=== PATIENT | male | born 1985 | race Caucasian/White ===

== ENCOUNTER → 2017-01-04 | Outpatient (CLI) | payer OTHER ==
--- NOTE | 2017-01-04 11:23 | FL ---
EXAMINATION TYPE: FL UGI air DATE OF EXAM: 01/04/2017 11:09 AM COMPARISON: NONE HISTORY: Epigastric pain and acid reflux-like symptoms. Been on reflux medication for years with some improvement in symptoms. History of surgery for pyloric stenosis as infant. TECHNIQUE: A double contrast UGI study is performed. A total of 1.06 minutes of fluoroscopic time wa s utilized during procedure. FINDINGS: [employer] image of the abdomen shows no gross abnormality. Without image is slightly suboptima l as does not include entire epigastric region near lung bases. The esophagus shows normal motility and emptying into the stomach. No evidence of hiatal hernia or s tricture noted. The stomach shows normal distensibility and peristalsis. A moderate size fixed hiatal hernia is pres ent. There is moderate diffuse gastric fold prominence particularly in the fundus. No evidence of any intraluminal mass or reinier ulcer disease. Some episodes of gastroesophageal reflux from hiatal herni a into the distal esophagus identified during real-time scanning. The duodenal bulb, sweep, and proximal small bowel loops are unremarkable on delayed images. IMPRESSION: Moderate size fixed hiatal hernia with moderate diffuse gastritis. No reinier ulcer disease .
[2017-01-04 12:02] LABS: CH 23.7; CHCM 30.3; HCT 44.1 % (39.0-53.0); HDW 2.76; HGB 13.2 gm/dL (13.0-17.5); Hypochromasia Marked; MCH 23.6 pg (25.0-35.0); MCHC 30.1 g/dL (31.0-37.0); MCV 78.6 fL (80.0-100.0); Mean Platelet Volume 7.6; RDW 14.4 % (11.5-15.5); WBC 2.4 k/uL (3.8-10.6)
[2017-01-04 12:58] LABS: % Iron Saturation 5.5 % (20-50)
== END | disposition home or self-care (01) ==
LOC: RADFLWHC 10:16
PROVIDERS: ATTEND Internal Medicine
DX: K29.70 Gastritis, unspecified, without bleeding (principal); K44.9 Diaphragmatic hernia without obstruction or gangrene; K21.9 Gastro-esophageal reflux disease without esophagitis; D64.9 Anemia, unspecified
CPT/HCPCS: 74246; 82607; 82746; 83540; 83550; 85027

== ENCOUNTER 2017-03-08 08:58 | Day surgery (SDC) | payer OTHER ==
[2017-03-02 12:26] VITALS: BMI 21.4
[~2017-03-08 08:58] MED LIST: LACTATED RINGERS 1,000 ML IV SCH; LIDOCAINE 1% 20 ML VIAL (10MG/ML) FOR IV START INTRADERMA PRN
[2017-03-08 09:26] VITALS: RESP 16; TEMP 99
[2017-03-08] MEDS ORDERED: LIDOCAINE 1% INJ 10MG/ML (20 ML MDV) ONE (09:46)
[2017-03-08] MEDS ORDERED: PROPOFOL 10 MG/ML 20 ML VIAL IV ONE (09:46)
--- NOTE | 2017-03-08 09:54 | P.PCN ---
Date of Procedure: 03/08/17 Procedure(s) Performed: BRIEF HISTORY: Patient is a 32-year-old, pleasant, white male, scheduled for an upper endoscopy as a part of long-standing evaluation of gastroesophageal reflux disease almost 15 years duration. He is been Prilosec 20 mg daily for the last 1 year and doing well. Scheduled for an upper endoscopy to rule out complicated reflux disease.. PROCEDURE PERFORMED: Esophagogastroduodenoscopy with biopsy. PREOPERATIVE DIAGNOSIS: Long-standing history of GERD. IV sedation per anesthesia. PROCEDURE: After informed consent was obtained, the patient was brought into the endoscopy unit. IV sedation was administered by Anesthesia under continuous monitoring. Initially the Olympus GIF-140 video endoscope was inserted into the mouth. Esophagus intubated without any difficulty. It was gradually advanced into the stomach and duodenum and carefully examined. The bulb and the second part of the duodenum appeared normal. The scope at this time was withdrawn to the stomach, adequately insufflated with air, and upon careful examination, mucosa of the antrum, had mild mottling of the mucosa and biopsies were done from this area. The body, cardia and the fundus appeared normal. The scope was then withdrawn into the esophagus. Moderate size hiatal hernia noted. The GE junction was located at 33 cm from the incisors. The esophagus appeared normal. There were no erosions or ulcerations seen and the patient tolerated the procedure well. IMPRESSION: 1. Moderate size hiatal hernia. 2. Minimal antral gastritis but no evidence of esophagitis or Garrison's esophagus. RECOMMENDATIONS: The findings of this examination were discussed with the patient as well as his family. He was advised to continue with Prilosec 20 mg daily and follow antireflux measures.
[2017-03-08 10:16] VITALS: BP 167/112; PULSE 67
== END 2017-03-08 10:43 | disposition home or self-care (01) ==
LOC: ORWHC2ENDO 08:58
PROVIDERS: ATTEND Internal Medicine Gastroenterology
DX: K29.50 Unspecified chronic gastritis without bleeding (principal); K44.9 Diaphragmatic hernia without obstruction or gangrene; Z79.899 Other long term (current) drug therapy
CPT/HCPCS: 88305; 88342; 43239; J2001; J2704

== ENCOUNTER → 2018-02-23 | Outpatient (CLI) | payer OTHER ==
[2018-02-23 14:34] LABS: HCT 45.4 % (39.0-53.0); Hypochromasia Marked; MCH 19.4 pg (25.0-35.0); MCHC 28.7 g/dL (31.0-37.0); MCV 67.7 fL (80.0-100.0); Mean Platelet Volume 6.2; Microcytosis Marked; Platelet Count 309 k/uL (150-450); RDW 15.9 % (11.5-15.5); WBC 3.1 k/uL (3.8-10.6)
[2018-02-23 15:07] LABS: ALT 27 U/L (21-72); AST 31 U/L (17-59); Albumin 4.5 g/dL (3.5-5.0); Alkaline Phosphatase 87 U/L (38-126); Anion Gap 15 mmol/L; Blood Urea Nitrogen 11 mg/dL (9-20); Calcium 9.7 mg/dL (8.4-10.2); Carbon Dioxide 28 mmol/L (22-30); Chloride 99 mmol/L (98-107); Cholesterol 172 mg/dL (<200); Glucose 97 mg/dL (74-99); HDL Cholesterol 45 mg/dL (40-60); LDL Cholesterol,Calculated 92 mg/dL (0-99); Sodium 142 mmol/L (137-145); Total Bilirubin 0.7 mg/dL (0.2-1.3); Total Protein 8.1 g/dL (6.3-8.2); Triglycerides 175 mg/dL (<150)
[2018-02-23 15:23] LABS: T4, Free (Free Thyroxine) 0.78 ng/dL (0.78-2.19)
== END | disposition home or self-care (01) ==
LOC: LABWHC1 14:03
PROVIDERS: ATTEND Internal Medicine
DX: Z00.00 Encounter for general adult medical examination without abnormal findings (principal); I11.9 Hypertensive heart disease without heart failure; E78.2 Mixed hyperlipidemia; K21.0 Gastro-esophageal reflux disease with esophagitis
CPT/HCPCS: 36415; 80053; 80061; 84439; 84443; 85027

== ENCOUNTER → 2019-06-26 | Outpatient (CLI) | payer OTHER ==
[2019-06-26 17:47] LABS: ALT 23 U/L (21-72); AST 51 U/L (17-59); African American GFR (CKD) >90 (>60 ml/min/1.73 sqM); Albumin 4.1 g/dL (3.5-5.0); Albumin/Globulin Ratio 1.2; Alkaline Phosphatase 74 U/L (38-126); Anion Gap 11 mmol/L; Blood Urea Nitrogen 9 mg/dL (9-20); Calcium 8.9 mg/dL (8.4-10.2); Carbon Dioxide 28 mmol/L (22-30); Chloride 101 mmol/L (98-107); Globulin 3.3 g/dL; Glucose 125 mg/dL (74-99); Potassium 2.8 mmol/L (3.5-5.1); Sodium 140 mmol/L (137-145); Total Bilirubin 0.7 mg/dL (0.2-1.3); Total Protein 7.4 g/dL (6.3-8.2)
== END | disposition home or self-care (01) ==
LOC: LABWHC1 16:56
PROVIDERS: ATTEND Family Medicine
DX: E87.6 Hypokalemia (principal)
CPT/HCPCS: 36415; 80053

== ENCOUNTER 2019-10-04 20:15 | Observation (INO) | payer OTHER ==
[2019-10-04 20:51] LABS: Glucose,Whole Blood 104 mg/dL (75-99)
[2019-10-04] MEDS ORDERED: SODIUM CHLORIDE 0.9% 1,000 ML IV STA (20:59)
--- NOTE | 2019-10-04 21:05 | ED ---
General Adult HPI - General Chief complaint: Syncope Stated complaint: Syncope Time Seen by Provider: 10/04/19 20:52 Source: patient, family, RN notes reviewed Mode of arrival: ambulatory Limitations: no limitations - History of Present Illness Initial comments: Patient is a pleasant 34-year-old male presenting to the emergency Department after syncopal episode. Patient states he was doing fine today. Patient states he started to get a little bit of discomfort of his upper back. Patient feels like he needs to crack it. States discomfort did become moderate. Patient then had a syncopal episode that lasted around 10 seconds. Patient states he still has some discomfort in the upper back. Patient states there is some radiation up towards the neck and also causes a mild headache. Patient was a little bit nauseated earlier. Patient feels somewhat cool all over at this point. No chest pain. Patient did have somewhat similar episode several months ago however he did not fully pass out. Patient states he was able to crack his back at that time and then felt good afterwards. No confusion. - Related Data Home Medications Medication Instructions Recorded Confirmed Omeprazole [PriLOSEC] 20 mg PO HS 12/11/15 03/08/17 Lisinopril [Zestril] 10 mg PO HS 03/02/17 03/08/17 Allergies Allergy/AdvReac Type Severity Reaction Status Date / Time No Known Allergies Allergy Verified 03/08/17 09:19 Review of Systems ROS Statement: Those systems with pertinent positive or pertinent negative responses have been documented in the HPI. ROS Other: All systems not noted in ROS Statement are negative. Constitutional: Denies: fever Eyes: Denies: eye pain ENT: Denies: ear pain Respiratory: Denies: cough, dyspnea Cardiovascular: Denies: chest pain Endocrine: Denies: fatigue Gastrointestinal: Reports: nausea. Denies: abdominal pain Genitourinary: Denies: dysuria Musculoskeletal: Reports: as per HPI, back pain Skin: Denies: rash Neurological: Reports: headache (Patient is starting to develop a mild frontal headache). Denies: weakness, confusion Past Medical History Past Medical History: GERD/Reflux, Hypertension Additional Past Medical History / Comment(s): hiatal hernia History of Any Multi-Drug Resistant Organisms: None Reported Past Surgical History: Bowel Resection Additional Past Surgical History / Comment(s): surg. on stomach as a baby for frequent vomiting Past Anesthesia/Blood Transfusion Reactions: No Reported Reaction Past Psychological History: No Psychological Hx Reported Smoking Status: Current every day smoker Past Alcohol Use History: Daily Past Drug Use History: Marijuana - Past Family History Mother Family Medical History: Cancer Additional Family Medical History / Comment(s): pt's. grandfather has MTHFR gene General Exam Limitations: no limitations General appearance: alert, in no apparent distress Head exam: Present: normocephalic Eye exam: Present: normal appearance, PERRL, EOMI. Absent: nystagmus ENT exam: Present: normal oropharynx Neck exam: Present: normal inspection, full ROM. Absent: tenderness Respiratory exam: Present: normal lung sounds bilaterally. Absent: chest wall tenderness Cardiovascular Exam: Present: regular rate, normal rhythm Expanded Peripheral pulses: 2+: Radial (R), Radial (L), Posterior Tibialis (R), Posterior Tibialis (L), Dorsalis Pedis (R), Dorsalis Pedis (L) GI/Abdominal exam: Present: soft. Absent: tenderness Extremities exam: Present: normal inspection Neurological exam: Present: alert, oriented X3, CN II-XII intact. Absent: motor sensory deficit Expanded Neurological exam: Present: protecting the airway Patient oriented to: Present: person, place, time Speech: Present: fluid speech Cranial nerves: EOM's Intact: Normal, Facial Sensation: Normal Sensory exam: Upper Extremity Light Touch: Normal, Lower Extremity Light Touch: Normal Motor strength exam: RUE: 5, LUE: 5, RLE: 5, LLE: 5 Eye Response: (4) open spontaneously Motor Response: (6) obeys commands Verbal Response: (5) oriented Psychiatric exam: Present: normal affect, normal mood Skin exam: Present: normal color Course Vital Signs 10/04/19 10/04/19 10/04/19 20:30 20:42 20:54 Temperature 97.4 F L Pulse Rate 74 80 79 Respiratory 18 18 18 Rate Blood Pressure 72/51 91/72 101/71 O2 Sat by Pulse 100 Oximetry 10/04/19 10/04/19 10/04/19 21:30 21:40 21:50 Temperature Pulse Rate 80 84 89 Respiratory 18 11 L 17 Rate Blood Pressure 118/83 127/83 O2 Sat by Pulse 99 Oximetry EKG Findings - EKG Comments: EKG Findings:: Normal sinus rhythm at 70. AL 122. QRS 90. QT 436. QTc 470. Normal axis. Normal QRS. No acute ST change. Medical Decision Making - Medical Decision Making Patient reevaluated and resting comfortably in bed. Blood pressure stable. Patient and family updated on results and plan. Case was discussed in detail with Dr. Chapin, who will admit covered for Dr. Jack. - Lab Data Result diagrams: 10/04/19 20:45 10/04/19 20:45 Lab Results 10/04/19 10/04/19 10/04/19 Range/Units 20:45 20:45 20:45 WBC 6.0 (3.8-10.6) k/uL RBC 5.72 (4.30-5.90) m/uL Hgb 12.3 L (13.0-17.5) gm/dL Hct 40.6 (39.0-53.0) % MCV 71.0 L (80.0-100.0) fL MCH 21.5 L (25.0-35.0) pg MCHC 30.3 L (31.0-37.0) g/dL RDW 15.9 H (11.5-15.5) % Plt Count 345 (150-450) k/uL Neutrophils % 56 % Lymphocytes % 33 % Monocytes % 6 % Eosinophils % 1 % Basophils % 2 % Neutrophils # 3.3 (1.3-7.7) k/uL Lymphocytes # 2.0 (1.0-4.8) k/uL Monocytes # 0.4 (0-1.0) k/uL Eosinophils # 0.1 (0-0.7) k/uL Basophils # 0.1 (0-0.2) k/uL Hypochromasia Marked Microcytosis Moderate PT 10.1 (9.0-12.0) sec INR 0.9 (<1.2) APTT 22.2 (22.0-30.0) sec Sodium 136 L (137-145) mmol/L Potassium 3.2 L (3.5-5.1) mmol/L Chloride 94 L (98-107) mmol/L Carbon Dioxide 30 (22-30) mmol/L Anion Gap 12 mmol/L BUN 14 (9-20) mg/dL Creatinine 1.18 (0.66-1.25) mg/dL Est GFR (CKD-EPI)AfAm >90 (>60 ml/min/1.73 sqM) Est GFR (CKD-EPI)NonAf 80 (>60 ml/min/1.73 sqM) Glucose 125 H (74-99) mg/dL POC Glucose (mg/dL) (75-99) mg/dL POC Glu [place] Maker ID Calcium 9.7 (8.4-10.2) mg/dL Magnesium 1.7 (1.6-2.3) mg/dL Total Bilirubin 0.6 (0.2-1.3) mg/dL AST 30 (17-59) U/L ALT 21 (21-72) U/L Alkaline Phosphatase 67 (38-126) U/L Troponin I (0.000-0.034) ng/mL Total Protein 7.6 (6.3-8.2) g/dL Albumin 4.3 (3.5-5.0) g/dL Urine Color Urine Appearance (Clear) Urine pH (5.0-8.0) Ur Specific [place] (1.001-1.035) Urine Protein (Negative) Urine Glucose (UA) (Negative) Urine Ketones (Negative) Urine Blood (Negative) Urine Nitrite (Negative) Urine Bilirubin (Negative) Urine Urobilinogen (<2.0) mg/dL Ur Leukocyte Esterase (Negative) 10/04/19 10/04/19 10/04/19 Range/Units 20:45 20:49 21:58 WBC (3.8-10.6) k/uL RBC (4.30-5.90) m/uL Hgb (13.0-17.5) gm/dL Hct (39.0-53.0) % MCV (80.0-100.0) fL MCH (25.0-35.0) pg MCHC (31.0-37.0) g/dL RDW (11.5-15.5) % Plt Count (150-450) k/uL Neutrophils % % Lymphocytes % % Monocytes % % Eosinophils % % Basophils % % Neutrophils # (1.3-7.7) k/uL Lymphocytes # (1.0-4.8) k/uL Monocytes # (0-1.0) k/uL Eosinophils # (0-0.7) k/uL Basophils # (0-0.2) k/uL Hypochromasia Microcytosis PT (9.0-12.0) sec INR (<1.2) APTT (22.0-30.0) sec Sodium (137-145) mmol/L Potassium (3.5-5.1) mmol/L Chloride (98-107) mmol/L Carbon Dioxide (22-30) mmol/L Anion Gap mmol/L BUN (9-20) mg/dL Creatinine (0.66-1.25) mg/dL Est GFR (CKD-EPI)AfAm (>60 ml/min/1.73 sqM) Est GFR (CKD-EPI)NonAf (>60 ml/min/1.73 sqM) Glucose (74-99) mg/dL POC Glucose (mg/dL) 104 H (75-99) mg/dL POC Glu [place] Maker ID Celena Puentes Calcium (8.4-10.2) mg/dL Magnesium (1.6-2.3) mg/dL Total Bilirubin (0.2-1.3) mg/dL AST (17-59) U/L ALT (21-72) U/L Alkaline Phosphatase (38-126) U/L Troponin I <0.012 (0.000-0.034) ng/mL Total Protein (6.3-8.2) g/dL Albumin (3.5-5.0) g/dL Urine Color Yellow Urine Appearance Clear (Clear) Urine pH 7.5 (5.0-8.0) Ur Specific [place] 1.037 H (1.001-1.035) Urine Protein Negative (Negative) Urine Glucose (UA) Negative (Negative) Urine Ketones Negative (Negative) Urine Blood Negative (Negative) Urine Nitrite Negative (Negative) Urine Bilirubin Negative (Negative) Urine Urobilinogen <2.0 (<2.0) mg/dL Ur Leukocyte Esterase Negative (Negative) - Radiology Data Radiology results: report reviewed (Computed tomography scan of the brain shows no acute process. CT angios chest abdomen pelvis shows hiatal hernia otherwise no acute process) Disposition Clinical Impression: Syncope Disposition: ADMITTED IP TO THIS [facility] Is patient prescribed a controlled substance at d/c from ED?: No Referrals: Michael Jack DO [Primary Care Provider] - 1-2 days Decision Time: 22:20
[2019-10-04 21:17] LABS: Basophils # (A) 0.1 k/uL (0-0.2); Basophils % (A) 2 %; Eosinophils # (A) 0.1 k/uL (0-0.7); Eosinophils % (A) 1 %; HCT 40.6 % (39.0-53.0); HGB 12.3 gm/dL (13.0-17.5); Hypochromasia Marked; Lymphocytes % (A) 33 %; MCH 21.5 pg (25.0-35.0); MCHC 30.3 g/dL (31.0-37.0); Mean Platelet Volume 5.6; Microcytosis Moderate; Monocytes # (A) 0.4 k/uL (0-1.0); Monocytes % (A) 6 %; Neutrophils # (A) 3.3 k/uL (1.3-7.7); Neutrophils % (A) 56 %; Platelet Count 345 k/uL (150-450); RBC 5.72 m/uL (4.30-5.90); RDW 15.9 % (11.5-15.5)
[2019-10-04 21:23] LABS: ALT 21 U/L (21-72); AST 30 U/L (17-59); African American GFR (CKD) >90 (>60 ml/min/1.73 sqM); Albumin 4.3 g/dL (3.5-5.0); Alkaline Phosphatase 67 U/L (38-126); Anion Gap 12 mmol/L; Blood Urea Nitrogen 14 mg/dL (9-20); Calcium 9.7 mg/dL (8.4-10.2); Carbon Dioxide 30 mmol/L (22-30); Chloride 94 mmol/L (98-107); Glucose 125 mg/dL (74-99); Magnesium 1.7 mg/dL (1.6-2.3); Non-African American GFR(CKD) 80 (>60 ml/min/1.73 sqM); Potassium 3.2 mmol/L (3.5-5.1); Sodium 136 mmol/L (137-145); Total Bilirubin 0.6 mg/dL (0.2-1.3); Total Protein 7.6 g/dL (6.3-8.2)
[2019-10-04 21:32] LABS: INR 0.9 (<1.2); Partial Thromboplastin Time 22.2 sec (22.0-30.0); Prothrombin Time 10.1 sec (9.0-12.0)
--- NOTE | 2019-10-04 21:51 | CT ---
EXAMINATION TYPE: CT brain wo con DATE OF EXAM: 10/04/2019 COMPARISON: None HISTORY: Upper back pain and syncope CT DLP: 1099.4 mGycm. Automated Exposure Control for Dose Reduction was Utilized. TECHNIQUE: CT scan of the head is performed without contrast. FINDINGS: Ventricles of normal size. There is no mass effect nor midline shift. There is no sign of intracranial hemorrhage. Calvarium is intact. There is no sign of cerebral edema. IMPRESSION: Negative head CT scan.
--- NOTE | 2019-10-04 22:02 | CT ---
EXAMINATION TYPE: CT angio thor/abd pel aorta DATE OF EXAM: 10/04/2019 COMPARISON: None HISTORY: Upper back pain and syncope CT DLP: 1347 mGycm. Automated Exposure Control for Dose Reduction was Utilized. CONTRAST: CT scan of the thorax, abdomen and pelvis is performed without and with IV Contrast, patient injected with 100 mL of Isovue 370. FINDINGS: The lungs are clear of infiltrate. There is no evidence of a pulmonary mass. There is no pleural effu caleb or pneumothorax. There is moderate-sized hiatal hernia. Heart size is normal. There is no perica rdial effusion. There is no mediastinal adenopathy. There are no hilar masses. There is normal contra st opacification of the pulmonary arteries. Thoracic aorta appears normal. There is no aneurysm or dissection. There is normal-appearing liver spleen pancreas gallbladder. Bile ducts are not dilated. There is no adrenal mass. Kidneys show satisfactory contrast opacification. There is no hydronephrosi s. Ureters are not dilated. Appendix appears normal. Bladder distends smoothly. There is no inguinal hernia. There is patency of the celiac artery and superior mesenteric artery. There is bilateral patency of t he renal arteries. Inferior mesenteric artery appears normal. There is bilateral patency of the iliac and femoral arteries. There is no evidence of aneurysm or dis section. There is no sign of hemodynamic stenosis. There is no mesenteric edema. There is no ascites or free air. There is no evidence of a bowel obstru ction. Thoracic and lumbar spine appear intact. Bony pelvis is intact. IMPRESSION: Moderately large hiatal hernia. No evidence of aneurysm or dissection. No evidence of hemodynamic stenosis. Negative CT angiogram of the chest abdomen pelvis. No evidence of pulmonary embolism.
[2019-10-04 22:13] LABS: Appearance,Urine Clear (Clear); Bilirubin,Urine Negative (Negative); Blood,Urine Negative (Negative); Color,Urine Yellow; Glucose,Urine (UA) Negative (Negative); Ketones,Urine Negative (Negative); Leukocyte Esterase,Urine Negative (Negative); Nitrite,Urine Negative (Negative); PH, Urine 7.5 (5.0-8.0); Protein,Urine Negative (Negative); Specific Gravity,Urine 1.037 (1.001-1.035); Urobilinogen,Urine <2.0 mg/dL (<2.0)
[2019-10-04] MEDS ORDERED: NALOXONE 0.4 MG/ML 1 ML VIAL IV PRN (22:20)
[2019-10-04] MEDS ORDERED: SODIUM CHLORIDE 0.9% 1,000 ML IV SCH (22:30)
[2019-10-05 00:01] VITALS: BMI 23.6
[2019-10-05 03:52] LABS: Basophils # (A) 0.1 k/uL (0-0.2); Basophils % (A) 1 %; Eosinophils # (A) 0.1 k/uL (0-0.7); Eosinophils % (A) 1 %; HCT 39.6 % (39.0-53.0); HGB 11.9 gm/dL (13.0-17.5); Hypochromasia Marked; Lymphocytes # (A) 1.3 k/uL (1.0-4.8); Lymphocytes % (A) 22 %; MCH 21.5 pg (25.0-35.0); MCHC 30.1 g/dL (31.0-37.0); MCV 71.2 fL (80.0-100.0); Mean Platelet Volume 5.6; Microcytosis Moderate; Monocytes # (A) 0.3 k/uL (0-1.0); Monocytes % (A) 5 %; Neutrophils # (A) 4.3 k/uL (1.3-7.7); Neutrophils % (A) 70 %; Platelet Count 280 k/uL (150-450); RBC 5.56 m/uL (4.30-5.90); RDW 15.6 % (11.5-15.5); WBC 6.1 k/uL (3.8-10.6)
[2019-10-05 04:13] LABS: ALT 23 U/L (21-72); AST 26 U/L (17-59); African American GFR (CKD) >90 (>60 ml/min/1.73 sqM); Albumin 3.7 g/dL (3.5-5.0); Alkaline Phosphatase 58 U/L (38-126); Anion Gap 10 mmol/L; Blood Urea Nitrogen 11 mg/dL (9-20); Carbon Dioxide 29 mmol/L (22-30); Chloride 96 mmol/L (98-107); Glucose 108 mg/dL (74-99); Non-African American GFR(CKD) >90 (>60 ml/min/1.73 sqM); Potassium 2.9 mmol/L (3.5-5.1); Sodium 135 mmol/L (137-145); Total Bilirubin 0.6 mg/dL (0.2-1.3); Total Protein 6.7 g/dL (6.3-8.2)
[2019-10-05] MEDS ORDERED: ACETAMINOPHEN TAB 500 MG TAB PO PRN (10:37)
[2019-10-05] MEDS ORDERED: PANTOPRAZOLE 40 MG TABLET PO SCH (10:45)
[2019-10-05] MEDS ORDERED: SPIRONOLACTONE 25 MG TAB PO SCH (10:45)
[2019-10-05] MEDS ORDERED: LISINOPRIL-HCTZ 20-25 MG 1 EACH TAB PO SCH (10:45)
[2019-10-05] MEDS ORDERED: amLODIPine 5 MG TAB PO SCH (10:45)
[2019-10-05] MEDS: POTASSIUM CHLORIDE ER 20 MEQ TAB.ER PO SCH ×2 (11:44→15:17)
[2019-10-05 11:47] VITALS: RESP 16; TEMP 97.1
[2019-10-05] MEDS ORDERED: ENOXAPARIN 40 MG/0.4 ML SYRINGE SQ SCH (13:45)
[2019-10-05] MEDS ORDERED: LACTATED RINGERS 1,000 ML IV SCH (13:45)
--- NOTE | 2019-10-05 13:52 | P.HPIM ---
History of Present Illness H&P Date: 10/05/19 Chief Complaint: passed out History of presenting complaint: This is a pleasant 34-year-old patient of Dr. Livier Jack. Chronic stable medical conditions include GERD, hypertension, hiatal hernia, nicotine dependence. Yesterday patient was in the kitchen started feeling 40 decided to sit down then passed out. He was perspiring a bit. No shaking episodes. No tongue biting or incontinence. No history of seizures. No prior history of head injury. Patient's had a nasal congestion. No fever no chills. When he initially presented to ER her blood pressure wasn't 70 and 90 systolic. Patient was given fluids. Patient denies taking any [id number] medication. No chest pain no palpitation. Feels much better. Sometime in patient feels unwell his will help him crack his upper back that he feels fine. Otherwise patient active. Up and about. Review of systems: GEN.: None EYES: None HEENT: Nasal congestion NECK: None RESPIRATORY: None CARDIOVASCULAR: None GASTROINTESTINAL: None GENITOURINARY: None MUSCULOSKELETAL: Upper neck discomfort LYMPHATICS: None HEMATOLOGICAL: None PSYCHIATRY: None NEUROLOGICAL: None Past medical history to include: GERD, hypertension, hiatal hernia Social history: . 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 There have to 3 mixed drinks before going to bed at night. Smokes a pack a day. Some marijuana daily. Physical examination: VITAL SIGNS: 97.4, 74, 18, 72/51, 100% room air-upon presentation GENERAL: BMI 22.2, sitting up in bed comfortable awake. EYES: Pupils equal. Conjunctiva normal. HEENT: External appearance of nose and ears normal, oral cavity grossly normal. Audible nasal congestion NECK: JVD not raised; masses not palpable. HEART: First and second heart sounds are normal; no edema. LUNGS: Respiratory rate normal; clear to auscultation. ABDOMEN: Soft, nontender, liver spleen not palpable, no masses palpable. PSYCH: Alert and oriented x3; mood and affect normal. NEUROLOGICAL: Cranial nerves grossly intact; no facial asymmetry, power and sensation grossly intact. LYMPHATICS: No lymph nodes palpable in the axilla and neck INVESTIGATIONS, reviewed in the clinical context: White count 6 hemoglobin 12.3 platelets 345 potassium 3.2 bun 14 creatinine 1.18 glucose 125 troponin I 3 negative Heel urine pH 1.037 EKG tracing personally reviewed by me-normal sinus rhythm CT angiogram after drastic abdominal pelvic out to-moderate size hiatal hernia, no dissections CT brain-negative Assessment: -Episode of syncope/unconsciousness resulting from hypertension. It may be noted that patient takes 3 blood pressure pills all in the morning. This is probably leading to this. This no palpitations no other cardiac symptoms and no focal symptoms. EKG is unremarkable. -GERD -Moderate size hiatal hernia -Essential hypertension -Hypotension on presentation -Severe hypokalemia patrician today's 2.9 Plan: We'll change the timing outpatient blood pressure medications. Of the abdomen and up into the evening. Replace potassium. Give lactated Ringer today. Watch patient on telemetry. Lovenox and DT prophylaxis. Care was discussed with the patient. The does not appear to be anything neurological present time. Past Medical History Past Medical History: GERD/Reflux, Hypertension Additional Past Medical History / Comment(s): hiatal hernia History of Any Multi-Drug Resistant Organisms: None Reported Past Surgical History: Bowel Resection Additional Past Surgical History / Comment(s): surg. on stomach as a baby for frequent vomiting Past Anesthesia/Blood Transfusion Reactions: No Reported Reaction Past Psychological History: No Psychological Hx Reported Smoking Status: Current every day smoker Past Alcohol Use History: Daily Additional Past Alcohol Use History / Comment(s): 1 ppd daily use Past Drug Use History: Marijuana Additional Drug Use History / Comment(s): daily use - Past Family History Mother Family Medical History: Cancer Additional Family Medical History / Comment(s): pt's. grandfather has MTHFR gene Medications and Allergies Home Medications Medication Instructions Recorded Confirmed Type Omeprazole [PriLOSEC] 20 mg PO DAILY 12/11/15 10/04/19 History Cholecalciferol [Vitamin D3 (25 1,000 unit PO DAILY 10/04/19 10/04/19 History Mcg = 1000 Iu)] Lisinopril-Hctz 20-25 mg 1 tab PO DAILY 10/04/19 10/04/19 History [Zestoretic 20-25] Spironolactone 25 mg PO DAILY 10/04/19 10/04/19 History amLODIPine [Norvasc] 5 mg PO DAILY 10/04/19 10/04/19 History Allergies Allergy/AdvReac Type Severity Reaction Status Date / Time No Known Allergies Allergy Verified 10/04/19 22:41 Physical Exam Vitals: Vital Signs Temp Pulse Pulse Pulse Resp BP BP 10/05/19 05:41 98.1 F 79 18 115/74 10/05/19 01:31 137/87 10/05/19 00:08 98.2 F 84 18 135/89 10/04/19 23:00 122/85 10/04/19 22:50 92 16 120/86 10/04/19 21:50 89 17 127/83 10/04/19 21:40 84 11 L 10/04/19 21:30 80 18 118/83 10/04/19 20:54 79 18 101/71 10/04/19 20:42 80 18 91/72 10/04/19 20:30 97.4 F L 74 18 72/51 Pulse Ox 10/05/19 05:41 99 10/05/19 01:31 10/05/19 00:08 100 10/04/19 23:00 10/04/19 22:50 10/04/19 21:50 10/04/19 21:40 99 10/04/19 21:30 10/04/19 20:54 10/04/19 20:42 10/04/19 20:30 100 Intake and Output 10/04/19 10/05/19 10/05/19 22:59 06:59 14:59 Other: Voiding Method Toilet Toilet # Voids 1 Weight 68.039 kg Results CBC & Chem 7: 10/05/19 03:34 10/05/19 03:34 Labs: Abnormal Lab Results - Last 24 Hours (Table) 10/04/19 10/04/19 10/04/19 Range/Units 20:45 20:45 20:49 Hgb 12.3 L (13.0-17.5) gm/dL MCV 71.0 L (80.0-100.0) fL MCH 21.5 L (25.0-35.0) pg MCHC 30.3 L (31.0-37.0) g/dL RDW 15.9 H (11.5-15.5) % Sodium 136 L (137-145) mmol/L Potassium 3.2 L (3.5-5.1) mmol/L Chloride 94 L (98-107) mmol/L Glucose 125 H (74-99) mg/dL POC Glucose (mg/dL) 104 H (75-99) mg/dL Ur Specific [place] (1.001-1.035) 10/04/19 10/05/19 10/05/19 Range/Units 21:58 03:34 03:34 Hgb 11.9 L (13.0-17.5) gm/dL MCV 71.2 L (80.0-100.0) fL MCH 21.5 L (25.0-35.0) pg MCHC 30.1 L (31.0-37.0) g/dL RDW 15.6 H (11.5-15.5) % Sodium 135 L (137-145) mmol/L Potassium 2.9 L (3.5-5.1) mmol/L Chloride 96 L (98-107) mmol/L Glucose 108 H (74-99) mg/dL POC Glucose (mg/dL) (75-99) mg/dL Ur Specific [place] 1.037 H (1.001-1.035) Thrombosis Risk Factor Assmnt - Choose All That Apply Any of the Below Risk Factors Present?: No Other Risk Factors: No Other congenital or acquired thrombophilia - If yes, enter type in comment: No Thrombosis Risk Factor Assessment Level: Very Low Risk
[2019-10-05 14:12] VITALS: PULSE 76
--- NOTE | 2019-10-05 14:29 | P.CRDCN ---
History of Present Illness Consult date: 10/05/19 Consult reason: sycope History of present illness: This is a 34-year-old male. He does not have any cardiac history. He does have history of hypertension and has been on lisinopril/hydrochlorothiazide for a very long time. Amlodipine and Aldactone were added recently around 1-3 months ago. He has been instructed to take blood pressure medications with one in the morning and 1 in the evening but he has been taking them both in the morning as he cannot remember the evening administration. Patient gives history that yesterday he was having trouble with upper back pain and was trying to crack his back and neck. He was laying on the floor and he started to get up he became sweaty and had a loss of consciousness. The next thing he remembered was his [id number] standing over him. He denied having any chest pain or pal pitations at the time. He denies any shortness of breath. He denies any other episodes like this. He states loss of consciousness may have lasted 10 seconds. Patient came into [facility] emergency center for evaluation and initial blood pressure 72/51 and heart rate 74. He was afebrile and pulse ox 100% on room air. CAT scan of the brain was negative for acute findings. CAT scan of the chest abdomen pelvis only positive for hiatal hernia. Patient states he has had trouble with low potassium in the past and his doctor told him it was related to medication is taken for his blood pressure at the time. He has subsequently been switched off that medication. EKG reveals sinus rhythm with no acute ST-T wave changes and heart rate of 70. Laboratory studies: WBC 6.0, hemoglobin 12.3, platelet count 345. Sodium 136, potassium 3.2, chloride 94, CO2 30, BUN 14 creatinine 1.18. Blood sugar 125. Magnesium 1.7 troponin negative on 3 draws. Repeat potassium this morning is 2.9. Social history: Patient is a smoker of one pack per day. He also smokes marijuana on a daily basis. He has somewhere between 2 and 4 mixed drinks each night. Review Of Systems: Constitutional: No fever, no chills, no night sweats. No weight change. No weakness, fatigue or lethargy. No daytime sleepiness. EENT: No headache. No blurred vision or double vision, no loss of vision. No loss of Hearing, no ringing in the ears, no dizziness. No nasal drainage or congestion. No epistaxis. No sore throat. Lungs: No shortness of breath, cough, no sputum production. No wheezing. Cardiovascular: No chest pain, no lower extremity edema. No palpitations. No paroxysmal nocturnal dyspnea. No orthopnea. No lightheadedness or dizziness. No syncopal episodes. Abdominal: No abdominal pain. No nausea, vomiting. No diarrhea. No constipation. No bloody or tarry stools.. No loss of appetite. Genitourinary: No dysuria, increased frequency, urgency. No urinary retention. Musculoskeletal: No myalgias. No muscle weakness, no gait dysfunction, no frequent falls. No back pain. No neck pain. Integumentary: No wounds, no lesions. No rash or pruritus. No unusual bruising. No change in hair or nails. Neurologic: No aphasia. No facial droop. No change in mentation. No head injury. No headache. No paralysis. No paresthesia. Psychiatric: No depression. No anxiety. No mood swings. Endocrine: No abnormal blood sugars. No weight change. No excessive sweating or thirst. No cold intolerance. No weight change. Gen: This is a thin 34-year-old male. He is resting in bed and appears to be comfortable and in no acute distress. HEENT: Head is atraumatic, normocephalic. Pupils equal, round. Sclerae is anicteric. Conjunctiva pink. Mucous members of the mouth are moist. NECK: Supple. No JVD. No lymphadenopathy. No thyromegaly. LUNGS: Clear to auscultation. No wheezes or rhonchi. No intercostal retractions. HEART: Regular rate and rhythm. No murmur. ABDOMEN: Soft. Bowel sounds are present. No masses. No tenderness. EXTREMITIES: No pedal edema. No calf tenderness. Dorsalis pedis +2 bilaterally. NEUROLOGICAL: Patient is awake, alert and oriented x3. Cranial nerves 2 through 12 are grossly intact. Assessment: Syncopal episode most likely secondary to orthostatic changes, presented with hypotension History of hypertension Hypokalemia Hiatal hernia Plan: Patient has been resumed on lisinopril/HIDA chlorothiazide 1 daily and Norvasc 5 mg at bedtime and spironolactone 25 mg daily Obtain orthostatic vital signs Replace potassium Recheck basic metabolic panel in the morning Obtain 2-D echocardiogram and Doppler study to assess cardiac structure and function Further recommendations to follow based upon clinical course Thank you kindly for this consultation Nurse practitioner note has been reviewed, I agree with documented findings and plan of care. Patient was seen and examined. Past Medical History Past Medical History: GERD/Reflux, Hypertension Additional Past Medical History / Comment(s): hiatal hernia History of Any Multi-Drug Resistant Organisms: None Reported Past Surgical History: Bowel Resection Additional Past Surgical History / Comment(s): surg. on stomach as a baby for frequent vomiting Past Anesthesia/Blood Transfusion Reactions: No Reported Reaction Past Psychological History: No Psychological Hx Reported Smoking Status: Current every day smoker Past Alcohol Use History: Daily Additional Past Alcohol Use History / Comment(s): 1 ppd daily use Past Drug Use History: Marijuana Additional Drug Use History / Comment(s): daily use - Past Family History Mother Family Medical History: Cancer Additional Family Medical History / Comment(s): pt's. grandfather has MTHFR gene Medications and Allergies Home Medications Medication Instructions Recorded Confirmed Type Omeprazole [PriLOSEC] 20 mg PO DAILY 12/11/15 10/04/19 History Cholecalciferol [Vitamin D3 (25 1,000 unit PO DAILY 10/04/19 10/04/19 History Mcg = 1000 Iu)] Lisinopril-Hctz 20-25 mg 1 tab PO DAILY 10/04/19 10/04/19 History [Zestoretic 20-25] Spironolactone 25 mg PO DAILY 10/04/19 10/04/19 History amLODIPine [Norvasc] 5 mg PO DAILY 10/04/19 10/04/19 History Allergies Allergy/AdvReac Type Severity Reaction Status Date / Time No Known Allergies Allergy Verified 10/04/19 22:41 Physical Exam Vitals: Vital Signs Temp Pulse Pulse Pulse Resp BP BP 10/05/19 11:30 97.1 F L 84 16 137/90 10/05/19 05:41 98.1 F 79 18 115/74 10/05/19 01:31 137/87 10/05/19 00:08 98.2 F 84 18 135/89 10/04/19 23:00 122/85 10/04/19 22:50 92 16 120/86 10/04/19 21:50 89 17 127/83 10/04/19 21:40 84 11 L 10/04/19 21:30 80 18 118/83 10/04/19 20:54 79 18 101/71 10/04/19 20:42 80 18 91/72 10/04/19 20:30 97.4 F L 74 18 72/51 Pulse Ox 10/05/19 11:30 100 10/05/19 05:41 99 10/05/19 01:31 10/05/19 00:08 100 10/04/19 23:00 10/04/19 22:50 10/04/19 21:50 10/04/19 21:40 99 10/04/19 21:30 10/04/19 20:54 10/04/19 20:42 10/04/19 20:30 100 Intake and Output 10/04/19 10/05/19 10/05/19 22:59 06:59 14:59 Other: Voiding Method Toilet Toilet # Voids 1 Weight 68.039 kg Results 10/05/19 03:34 10/05/19 03:34 Cardiac Enzymes 10/04/19 10/04/19 10/05/19 Range/Units 20:45 20:45 03:34 AST 30 (17-59) U/L Troponin I <0.012 <0.012 (0.000-0.034) ng/mL 10/05/19 10/05/19 Range/Units 03:34 08:58 AST 26 (17-59) U/L Troponin I <0.012 (0.000-0.034) ng/mL Coagulation 10/04/19 Range/Units 20:45 PT 10.1 (9.0-12.0) sec APTT 22.2 (22.0-30.0) sec CBC 10/04/19 10/05/19 Range/Units 20:45 03:34 WBC 6.0 6.1 (3.8-10.6) k/uL RBC 5.72 5.56 (4.30-5.90) m/uL Hgb 12.3 L 11.9 L (13.0-17.5) gm/dL Hct 40.6 39.6 (39.0-53.0) % Plt Count 345 280 (150-450) k/uL Comprehensive Metabolic Panel 10/04/19 10/05/19 Range/Units 20:45 03:34 Sodium 136 L 135 L (137-145) mmol/L Potassium 3.2 L 2.9 L (3.5-5.1) mmol/L Chloride 94 L 96 L (98-107) mmol/L Carbon Dioxide 30 29 (22-30) mmol/L BUN 14 11 (9-20) mg/dL Creatinine 1.18 0.86 (0.66-1.25) mg/dL Glucose 125 H 108 H (74-99) mg/dL Calcium 9.7 9.0 (8.4-10.2) mg/dL AST 30 26 (17-59) U/L ALT 21 23 (21-72) U/L Alkaline Phosphatase 67 58 (38-126) U/L Total Protein 7.6 6.7 (6.3-8.2) g/dL Albumin 4.3 3.7 (3.5-5.0) g/dL Current Medications Generic Name Dose Route Start Last Admin Trade Name Freq PRN Reason Stop Dose Admin Acetaminophen 500 mg 10/05/19 10:37 Tylenol Tab PO Q6HR PRN Fever and/ or Pain Amlodipine Besylate 5 mg 10/05/19 10:45 10/05/19 11:43 Norvasc PO 5 mg DAILY DUTCH Administration Lisinopril/HCTZ 1 each 10/05/19 10:45 10/05/19 11:48 Zestoretic 20-25 PO 1 each DAILY DUTCH Administration Sodium Chloride 1,000 mls @ 20 mls/hr 10/04/19 22:30 10/05/19 01:51 Saline 0.9% IV Not Given .Q24H DUTCH Naloxone HCl 0.2 mg 10/04/19 22:20 Narcan IV Q2M PRN Opioid Reversal Pantoprazole Sodium 20 mg 10/05/19 10:45 10/05/19 11:43 Protonix PO 20 mg [id number] DUTCH Administration Potassium Chloride 40 meq 10/05/19 12:00 10/05/19 11:44 K-Dur 20 PO 10/05/19 14:01 40 meq Q2HR DUTCH Administration Spironolactone 25 mg 10/05/19 10:45 10/05/19 11:43 Aldactone PO Not Given DAILY DUTCH Intake and Output 11/15/19 11/16/19 11/16/19 22:59 06:59 14:59 Other: Voiding Method Toilet Toilet # Voids 1 Weight 68.039 kg 10/05/19 03:34 10/05/19 03:34
--- NOTE | 2019-10-05 16:00 | ECHOF ---
Referral Reason:LVF MEASUREMENTS -------- HEIGHT: 175.3 cm WEIGHT: 68.0 kg BP: 121/80 RVIDd: 2.7 cm (< 3.3) IVSd: 0.9 cm (0.6 - 1.1) LVIDd: 4.1 cm (3.9 - 5.3) LVPWd: 0.9 cm (0.6 - 1.1) IVSs: 1.6 cm LVIDs: 2.5 cm LVPWs: 1.2 cm LA Diam: 2.6 cm (2.7 - 3.8) LAESV Index (A-L): 13.87 ml/m Ao Diam: 3.0 cm (2.0 - 3.7) AV Cusp: 2.5 cm (1.5 - 2.6) MV EXCURSION: 13.818 mm (> 18.000) MV EF SLOPE: 36 mm/s (70 - 150) EPSS: 0.3 cm MV E Danny: 0.75 m/s MV DecT: 268 ms MV A Danny: 0.64 m/s MV E/A Ratio: 1.18 TAPSE: 17.25 mm FINDINGS -------- Sinus rhythm. This was a technically good study. The left ventricular size is normal. Left ventricular wall thickness is normal. Overall left vent ricular systolic function is normal with, an EF between 60 - 65 %. The diastolic filling pattern is normal for the age of the patient 9.20. The right ventricle is normal in size. Normal LA size by volume 22+/-6 ml/m2. The right atrium is normal in size. Interatrial and interventricular septum intact. The aortic valve is trileaflet and appears structurally normal. The mitral valve is normal. The tricuspid valve appears structurally normal. Trace/mild (physiologic) pulmonic regurgitation. The aortic root size is normal. Normal inferior vena cava with normal inspiratory collapse consistent with estimated right atrial pre ssure of 5 mmHg. There is no pericardial effusion. CONCLUSIONS -------- 1. Sinus rhythm. 2. This was a technically good study. 3. The left ventricular size is normal. 4. Left ventricular wall thickness is normal. 5. Overall left ventricular systolic function is normal with, an EF between 60 - 65 %. 6. The diastolic filling pattern is normal for the age of the patient 9.20 7. The right ventricle is normal in size. 8. Normal LA size by volume 22+/-6 ml/m2. 9. The right atrium is normal in size. 10. Interatrial and interventricular septum intact. 11. The aortic valve is trileaflet and appears structurally normal. 12. The mitral valve is normal. 13. The tricuspid valve appears structurally normal. 14. Trace/mild (physiologic) pulmonic regurgitation. 15. The aortic root size is normal. 16. Normal inferior vena cava with normal inspiratory collapse consistent with estimated right atrial pressure of 5 mmHg. 17. There is no pericardial effusion. [employer]: Elvia Fitzpatrick RDCS
[2019-10-05 18:18] VITALS: BP 123/79
--- NOTE | 2019-10-06 19:29 | P.DS ---
Providers Date of admission: 10/04/19 22:22 Expected date of discharge: 10/05/19 Attending physician: Mike Chapin Consults: 10/04/19 22:21 Consult Physician Urgent Consulting Provider: Ivette Giposn Consult Reason/Comments: syncope Do you want consulting provider notified?: Yes Primary care physician: Michael Jack [facility] Course: Chief Complaint: passed out History of presenting complaint: This is a pleasant 34-year-old patient of Dr. Livier Jack. Chronic stable medical conditions include GERD, hypertension, hiatal hernia, nicotine dependence. Yesterday patient was in the kitchen started feeling funny decided to sit down then passed out. He was perspiring a bit. No shaking episodes. No tongue biting or incontinence. No history of seizures. No prior history of head injury. Patient's had a nasal congestion. No fever no chills. When he initially presented to ER her blood pressure wasn't 70 and 90 systolic. Patient was given fluids. Patient denies taking any [id number] medication. No chest pain no palpitation. Feels much better. Sometime in patient feels unwell his will help him crack his upper back that he feels fine. Otherwise patient active. Up and about. It was felt that patient take 3 antihypertensive medications the morning, and accumulative effect. The patient hypotensive. Telemetry was unremarkable. Seen by cardiology.. Okay to be discharged. Patient's dose of amlodipine has been moved to the evening time. Patient was told to wait 1 more night to make sure things are fine. Patient is insistent on wanting to leave AMA. Patient is being discharged with the above instructions to take amitriptyline at night. Consultation: Dr. Gipson from cardiology Physical examination: VITAL SIGNS: 97.1, 92, 123/79, 100% on room air GENERAL: BMI 22.2, sitting up in bed comfortable awake. EYES: Pupils equal. Conjunctiva normal. HEENT: External appearance of nose and ears normal, oral cavity grossly normal. Audible nasal congestion NECK: JVD not raised; masses not palpable. HEART: First and second heart sounds are normal; no edema. LUNGS: Respiratory rate normal; clear to auscultation. ABDOMEN: Soft, nontender, liver spleen not palpable, no masses palpable. PSYCH: Alert and oriented x3; mood and affect normal. NEUROLOGICAL: Cranial nerves grossly intact; no facial asymmetry, power and sensation grossly intact. LYMPHATICS: No lymph nodes palpable in the axilla and neck INVESTIGATIONS, reviewed in the clinical context: White count 6 hemoglobin 12.3 platelets 345 potassium 3.2 bun 14 creatinine 1.18 glucose 125 troponin I 3 negative Heel urine pH 1.037 EKG tracing personally reviewed by me-normal sinus rhythm CT angiogram after drastic abdominal pelvic out to-moderate size hiatal hernia, no dissections CT brain-negative 2-D echo-EF 60-65% Assessment: -Episode of syncope/unconsciousness resulting from hypotension. It may be noted that patient takes 3 blood pressure pills all in the morning- leading to this. This no palpitations no other cardiac symptoms and no focal symptoms. EKG is unremarkable. -GERD -Moderate size hiatal hernia -Essential hypertension -Hypotension on presentation -Severe hypokalemia patrician today's 2.9 Disposition: Home Patient Condition at Discharge: Stable Plan - Discharge Summary New Discharge Prescriptions: No Action Omeprazole [PriLOSEC] 20 mg PO DAILY amLODIPine [Norvasc] 5 mg PO HS Lisinopril-Hctz 20-25 mg [Zestoretic 20-25] 1 tab PO DAILY Cholecalciferol [Vitamin D3 (25 Mcg = 1000 Iu)] 1,000 unit PO DAILY Discharge Medication List Omeprazole [PriLOSEC] 20 mg PO DAILY 12/11/15 [History] Cholecalciferol [Vitamin D3 (25 Mcg = 1000 Iu)] 1,000 unit PO DAILY 10/04/19 [History] Lisinopril-Hctz 20-25 mg [Zestoretic 20-25] 1 tab PO DAILY 10/04/19 [History] amLODIPine [Norvasc] 5 mg PO HS 10/04/19 [History] Follow up Appointment(s)/Referral(s): Michael Jack DO [Primary Care Provider] - 1-2 days Patient Instructions/Handouts: How to Stop Smoking (DC), Syncope (DC), Cigarette Smoking and Your Health (GEN), How to Take a Blood Pressure (DC), Secondhand Smoke Exposure in Children (ED) Discharge Disposition: HOME SELF-CARE
[2019-10-06] MEDS ORDERED: amLODIPine 5 MG TAB PO SCH (21:00)
== END 2019-10-05 19:05 | disposition home or self-care (01) ==
LOC: EC 20:15 → 3NMEDONC 22:22
PROVIDERS: ADMIT Hospitalist; ATTEND Hospitalist
DX: I95.9 Hypotension, unspecified (principal); K21.9 Gastro-esophageal reflux disease without esophagitis; K44.9 Diaphragmatic hernia without obstruction or gangrene; I10 Essential (primary) hypertension; E87.6 Hypokalemia; M54.6 Pain in thoracic spine; R61 Generalized hyperhidrosis; R09.81 Nasal congestion; Z53.29 Procedure and treatment not carried out because of patient's decision for other reasons; F17.210 Nicotine dependence, cigarettes, uncomplicated; F12.90 Cannabis use, unspecified, uncomplicated; Z79.899 Other long term (current) drug therapy; Z80.9 Family history of malignant neoplasm, unspecified; Z84.81 Family history of carrier of genetic disease
CPT/HCPCS: 96372; 96360; 99285; 36415; 93005; 93306; 80053 ×2; 83735; 84484 ×2; 85025 ×2; 85610; 85730; 81003; 70450; 71275; 74174; G0378 ×2; J1650; Q9967

== ENCOUNTER 2020-09-29 14:53 | Emergency (ER) | payer OTHER ==
[2020-09-29 15:42] VITALS: BP 95/66
[2020-09-29] MEDS ORDERED: HYDROcodone/APAP 5-325MG 1 EACH TAB PO STA (15:48)
[2020-09-29] MEDS ORDERED: LIDOCAINE 1% INJ 10MG/ML (20 ML MDV) SQ ONE (15:48)
[2020-09-29] MEDS ORDERED: DIPH,PERTUS(ACELL)TETVAC-LF 0.5 ML VIAL IM ONE (15:48)
--- NOTE | 2020-09-29 16:02 | ED ---
Wound/Laceration HPI - General Chief Complaint: Wound/Laceration Stated Complaint: Glass in foot Time Seen by Provider: 09/29/20 15:45 Source: patient Mode of arrival: wheelchair Limitations: no limitations - History of Present Illness Initial Comments: 35-year-old male presenting today for chief complaint of laceration right foot. Patient states he laceration on the bottom of his right foot. Patient states he stepped on a piece of glass he states he has a laceration appears motion were potential however a second laceration appears more deep was concerned needed repair. Patient denies noting any retained glass. Patient admits to pain. States his tetanus is about 10 years old. Denies change in ROM or strength of digits of foot >Denies uncontrolled bleeding. Patient appears well on arrival, no acute distress. Foot wrapped. Injury occurred this AM. - Related Data Home Medications Medication Instructions Recorded Confirmed Omeprazole [PriLOSEC] 20 mg PO DAILY 12/11/15 10/04/19 Cholecalciferol [Vitamin D3 (25 1,000 unit PO DAILY 10/04/19 10/04/19 Mcg = 1000 Iu)] Lisinopril-Hctz 20-25 mg 1 tab PO DAILY 10/04/19 10/04/19 [Zestoretic 20-25] amLODIPine [Norvasc] 5 mg PO HS 10/04/19 10/05/19 Allergies Allergy/AdvReac Type Severity Reaction Status Date / Time No Known Allergies Allergy Verified 09/29/20 15:42 Review of Systems ROS Statement: Those systems with pertinent positive or pertinent negative responses have been documented in the HPI. ROS Other: All systems not noted in ROS Statement are negative. Past Medical History Past Medical History: GERD/Reflux, Hypertension Additional Past Medical History / Comment(s): hiatal hernia History of Any Multi-Drug Resistant Organisms: None Reported Past Surgical History: Bowel Resection Additional Past Surgical History / Comment(s): surg. on stomach as a baby for frequent vomiting Past Anesthesia/Blood Transfusion Reactions: No Reported Reaction Past Psychological History: No Psychological Hx Reported Smoking Status: Current every day smoker Past Alcohol Use History: Daily Past Drug Use History: Marijuana - Past Family History Mother Family Medical History: Cancer Additional Family Medical History / Comment(s): pt's. grandfather has MTHFR gene General Exam - General Exam Comments Initial Comments: General: The patient is awake and alert, in no distress, and does not appear acutely ill. Eye: Pupils are equal, round and reactive to light, extra-ocular movements are intact. No nystagmus. There is normal conjunctiva bilaterally. No signs of icterus. Musculoskeletal: Normal ROM, no tenderness. Strength 5/5. Sensation intact. Pulses equal bilaterally 2+. Neurological: A&O x 3. CN II-XII intact grossly, There are no obvious motor or sensory deficits. Coordination appears grossly intact. Speech is normal. Skin: Skin is warm and dry and no rashes. 4.5cm laceration of the right foot medial aspect 2 inches inferior to great toe, horizontal orientation, on the heel there is a 3cm laceration very superficial wound edges naturally tightly approximate. No active bleeding Psychiatric: Cooperative, appropriate mood & affect, normal judgment. Limitations: no limitations Course Vital Signs 09/29/20 15:39 Temperature 99.5 F Pulse Rate 63 Respiratory 20 Rate Blood Pressure 95/66 O2 Sat by Pulse 96 Oximetry Procedures - Laceration Laceration #1 Consent Obtained: verbal consent Indication: laceration Site: foot Size (cm): 4 (4.5 actual) Description: linear Depth: simple, single layer Anesthetic Used: lidocaine 1% Amount (mls): 1 Pre-repair: wound explored, irrigated extensively, deep structures intact Type of Sutures: nylon Size of Sutures: 5-0 Number of Sutures: 5 Technique: simple, interrupted Patient Tolerated Procedure: well, no complications Medical Decision Making - Medical Decision Making wound explored irrigated, one too superifical for repair with sutures, second superficial but could benefit from repair. Repaired after cleansing/irrigation/exploration. No FB. Patient tolerated procedure. Discharged appearing well. Disposition Clinical Impression: Foot laceration Disposition: HOME SELF-CARE Condition: Good Instructions (If sedation given, give patient instructions): Care For Your Stitches (ED), Laceration (ED) Additional Instructions: Please use medication as discussed. Please follow-up with family doctor in the next 2 days of symptoms have not improved. Return for suture removal in 7-10 days Please return to emergency room if the symptoms increase or worsen or for any other concerns. Is patient prescribed a controlled substance at d/c from ED?: No Referrals: Michael Jack DO [Primary Care Provider] - 1-2 days Time of Disposition: 16:42
--- NOTE | 2020-09-29 16:03 | XR ---
EXAMINATION TYPE: XR foot complete RT DATE OF EXAM: 09/29/2020 CLINICAL HISTORY: pain TECHNIQUE: Frontal, lateral and oblique images of the right foot are obtained. COMPARISON: None. FINDINGS: There is no acute fracture/dislocation evident. The joint spaces appear within normal apple its. The overlying soft tissue appears unremarkable. IMPRESSION: There is no acute fracture or dislocation. ICD 10 NO FRACTURE, INITIAL EVALUATION
[2020-09-29 17:09] VITALS: PULSE 70; RESP 18; TEMP 98.9
== END 2020-09-29 17:00 | disposition home or self-care (01) ==
LOC: EC 14:53
DX: S91.311A Laceration without foreign body, right foot, initial encounter (principal); I10 Essential (primary) hypertension; K44.9 Diaphragmatic hernia without obstruction or gangrene; K21.9 Gastro-esophageal reflux disease without esophagitis; F17.200 Nicotine dependence, unspecified, uncomplicated; Z79.899 Other long term (current) drug therapy; Z23 Encounter for immunization; W25.XXXA Contact with sharp glass, initial encounter; Y92.009 Unspecified place in unspecified non-institutional (private) residence as the place of occurrence of the external cause
CPT/HCPCS: 73630; 90715; 99283; 90471; 12002; J2001

== ENCOUNTER → 2024-01-02 | Outpatient (CLI) | payer OTHER | LOC: CPPFTMAIN 14:51 | PROVIDERS: ATTEND Family Medicine | DX: R05.3 Chronic cough (principal); F12.90 Cannabis use, unspecified, uncomplicated; F17.200 Nicotine dependence, unspecified, uncomplicated | CPT/HCPCS: 94060; 94726; 94729 ==

== ENCOUNTER 2024-10-29 10:16 | Inpatient (IN) | payer OTHER ==
--- NOTE | 2024-10-29 10:54 | ED ---
Dizziness HPI - General Source: patient, RN notes reviewed Mode of arrival: ambulatory Limitations: no limitations - History of Present Illness MD Complaint: dizziness, near syncope Onset/Timin -: days(s) Timing: gradual onset, waxing/waning Description: lightheadedness History of Same: Yes History of Trauma: No Improves With: remaining still Worsens With: movement, position, exertion Associated Symptoms: shortness of breath, weakness <Fuad Cornejo - Last Filed: 10/29/24 18:16> <Liliana Sanchez - Last Filed: 11/01/24 14:33> - General Chief Complaint: Dizziness Stated Complaint: low iron Time Seen by Provider: 10/29/24 10:21 - History of Present Illness Initial Comments: This is a 39-year-old male presenting with dizziness and shortness of breath x 7 days. Patient endorses history of recurrent anemia, requiring infusions every several months. Patient states he has been having episodes of chronic dizziness for at least the past year. Patient states symptoms worsen with exertion, ambulation, position change, hot showers. Endorses associated rapid heart rate. Patient states symptoms improve when lying supine. Endorses bright red blood in the toilet for the past 7 days as well. Patient able to provide a picture of large amount of blood noted in toilet from recent bowel movement. Endorses history of internal hemorrhoids with associated bleeding. Patient states he last received colonoscopy over 1 year ago. Patient denies fever, chills, chest pain, abdominal pain, N/V/D, constipation. (Fuad Cornejo) - Related Data Home Medications Medication Instructions Recorded Confirmed Lisinopril-Hctz 20-25 mg 1 tab PO DAILY 10/04/19 10/29/24 [Zestoretic 20-25] amLODIPine [Norvasc] 5 mg PO DAILY 10/04/19 10/29/24 Famotidine 40 mg PO BID 11/29/23 10/29/24 Levalbuterol Hfa Inhaler [Xopenex 2 puff INHALATION RT-Q4H PRN 11/29/23 10/29/24 Hfa Inhaler] Loratadine 10 mg PO DAILY 11/29/23 10/29/24 Multivitamins, Thera [Multivitamin 1 tab PO DAILY 11/29/23 10/29/24 (formulary)] Fluticasone Propion/Salmeterol 1 puff INHALATION RT-BID PRN 10/29/24 10/29/24 [Advair 250-50 Diskus] Magnesium Oxide [Mag-Ox] 400 mg PO BID 10/29/24 10/29/24 Omeprazole [PriLOSEC] 40 mg PO DAILY 10/29/24 10/29/24 Allergies Allergy/AdvReac Type Severity Reaction Status Date / Time No Known Allergies Allergy Verified 10/29/24 15:16 Review of Systems ROS Other: All systems not noted in ROS Statement are negative. <Fuad Cornejo - Last Filed: 10/29/24 18:16> ROS Other: All systems not noted in ROS Statement are negative. <Liliana Sanchez - Last Filed: 11/01/24 14:33> ROS Statement: Those systems with pertinent positive or pertinent negative responses have been documented in the HPI. Past Medical History Past Medical History: Blood Disorder, GERD/Reflux, Hypertension Additional Past Medical History / Comment(s): hiatal hernia.ANEMIA History of Any Multi-Drug Resistant Organisms: None Reported Past Surgical History: Bowel Resection Additional Past Surgical History / Comment(s): surg. on stomach as a baby for frequent vomiting Past Anesthesia/Blood Transfusion Reactions: No Reported Reaction Past Psychological History: No Psychological Hx Reported Smoking Status: Current every day smoker Past Alcohol Use History: Daily Past Drug Use History: Marijuana - Past Family History Mother Family Medical History: Cancer Additional Family Medical History / Comment(s): pt's. grandfather has MTHFR gene <Fuad Cornejo - Last Filed: 10/29/24 18:16> General Exam Limitations: no limitations General appearance: alert, in no apparent distress Head exam: Present: atraumatic, normocephalic, normal inspection Eye exam: Present: normal appearance, PERRL, EOMI. Absent: scleral icterus, conjunctival injection, periorbital swelling ENT exam: Present: normal exam, mucous membranes moist Neck exam: Present: normal inspection. Absent: tenderness, meningismus, lymphadenopathy Respiratory exam: Present: normal lung sounds bilaterally. Absent: respiratory distress, wheezes, rales, rhonchi, stridor Cardiovascular Exam: Present: normal rhythm, tachycardia, normal heart sounds. Absent: systolic murmur, diastolic murmur, rubs, gallop, clicks GI/Abdominal exam: Present: soft, normal bowel sounds. Absent: distended, tenderness, guarding, rebound, rigid Rectal exam: Present: normal rectal tone, hemorrhoids (External without thrombosis or bleeding), tenderness (Rectal tenderness on IVANNA). Absent: black stool, bloody stool, fecal impaction Extremities exam: Present: normal inspection, full ROM, normal capillary refill. Absent: tenderness, pedal edema, joint swelling, calf tenderness Back exam: Present: normal inspection Neurological exam: Present: alert, oriented X3, CN II-XII intact Psychiatric exam: Present: normal affect, normal mood Skin exam: Present: warm, dry, intact, normal color. Absent: rash <Fuad Cornejo - Last Filed: 10/29/24 18:16> Course Vital Signs 10/29/24 10/29/24 10/29/24 10:20 12:08 17:00 Temperature 98.4 F 98.4 F Pulse Rate 121 H 85 Pulse Rate [ 95 Pulse Oximetery ] Respiratory 22 16 16 Rate Blood Pressure 85/57 112/76 Blood Pressure 112/74 [Left Arm Sitting] Blood Pressure 101/67 [Left Arm Standing] Blood Pressure 75/49 [Left Arm Supine] O2 Sat by Pulse 94 L 96 Oximetry 10/29/24 10/29/24 10/29/24 17:40 17:55 18:15 Temperature 98.4 F 98.6 F 98.6 F Pulse Rate 89 86 93 Pulse Rate [ Pulse Oximetery ] Respiratory 18 16 18 Rate Blood Pressure 110/71 109/70 115/77 Blood Pressure [Left Arm Sitting] Blood Pressure [Left Arm Standing] Blood Pressure [Left Arm Supine] O2 Sat by Pulse 96 96 97 Oximetry 10/29/24 10/29/24 10/29/24 19:33 20:09 20:12 Temperature 98.9 F 99.5 F 99.5 F Pulse Rate 89 92 89 Pulse Rate [ Pulse Oximetery ] Respiratory 18 18 18 Rate Blood Pressure 99/66 108/78 108/78 Blood Pressure [Left Arm Sitting] Blood Pressure [Left Arm Standing] Blood Pressure [Left Arm Supine] O2 Sat by Pulse 97 98 96 Oximetry 10/29/24 20:44 Temperature 98.7 F Pulse Rate 88 Pulse Rate [ Pulse Oximetery ] Respiratory 18 Rate Blood Pressure 95/67 Blood Pressure [Left Arm Sitting] Blood Pressure [Left Arm Standing] Blood Pressure [Left Arm Supine] O2 Sat by Pulse 96 Oximetry Medical Decision Making - Lab Data Result diagrams: 10/29/24 10:54 10/29/24 10:54 <Fuad Cornejo - Last Filed: 10/29/24 18:16> - Lab Data Result diagrams: 11/01/24 08:07 10/31/24 06:45 <LauraLiliana Angelica - Last Filed: 11/01/24 14:33> - Medical Decision Making Was pt. sent in by a medical professional or institution (, PA, CAMP ADVISOR, urgent care, hospital, or group home...) When possible be specific @ -No Did you speak to anyone other than the patient for history (EMS, parent, family, police, friend...)? What history was obtained from this source @ -No Did you review nursing and triage notes (agree or disagree)? Why? @ -I reviewed and agree with nursing and triage notes Were old charts reviewed (outside hosp., previous admission, EMS record, old EKG, old radiological studies, urgent care reports/EKG's, group home records)? Report findings @ -No old charts were reviewed Differential Diagnosis (chest pain, altered mental status, abdominal pain women, abdominal pain men, vaginal bleeding, weakness, fever, dyspnea, syncope, headache, dizziness, GI bleed, back pain, seizure, CVA, palpatations, mental health, musculoskeletal)? @ -Differential Dizziness: Benign paroxysmal positional Vertigo, Meniere's disease, otitis media, acoustic neuroma, vertebrobasilar insufficiency, cerebellar stroke, encephalitis, hypovolemic, arrhythmia, coronary artery syndrome, anemia, this is not meant to be an all-inclusive list EKG interpreted by me (3pts min.). @ -Sinus rhythm with QT prolongation. No ST changes or T wave inversion. Ventricular rate is 94 bpm, NAHID 141 ms, QRS duration 94 ms, QTc 462 ms. X-rays interpreted by me (1pt min.). @ -None done CT interpreted by me (1pt min.). @ -None done U/S interpreted by me (1pt. min.). @ -None done What testing was considered but not performed or refused? (CT, X-rays, U/S, labs)? Why? @ -None What meds were considered but not given or refused? Why? @ -None Did you discuss the management of the patient with other professionals (professionals i.e. , PA, CAMP ADVISOR, lab, RT, psych nurse, social work nurse, carpet winder, teacher, police patrol officer, trimming caser)? Give summary @ -Spoke to Dr. Barnhart from [facility] who advised packed red blood cells, admission to unit and to contact Dr. Mcdermott. Was smoking cessation discussed for >3mins.? @ -No Was critical care preformed (if so, how long)? @ -No Were there social determinants of health that impacted care today? How? (Homelessness, low income, unemployed, alcoholism, drug addiction, transportation, low edu. Level, literacy, decrease access to med. care, care home, rehab)? @ -No Was there de-escalation of care discussed even if they declined (Discuss DNR or withdrawal of care, Hospice)? DNR status @ -No What co-morbidities impacted this encounter? (DM, HTN, Smoking, COPD, CAD, Cancer, CVA, ARF, Chemo, Hep., AIDS, mental health diagnosis, sleep apnea, morbid obesity)? @ -None Was patient admitted / discharged? Hospital course, mention meds given and route, prescriptions, significant lab abnormalities, going to OR and other pertinent info. @ -Lab work shows hemoglobin of 7.8 hypokalemia of 2.5 and hyponatremia of 128. Initial stool occult blood was negative with large amount of blood following bowel movement testing positive for blood. Patient given IV normal saline and p.o. potassium along with IV potassium chloride. Spoke to Dr. Barnhart advised admission into ICU, contact Dr. Mcdermott provide packed red blood cells. Red blood cells ordered along with type and screen and patient admitted to ICU. Undiagnosed new problem with uncertain prognosis? @ -Hematochezia, bright red blood per rectum Drug Therapy requiring intensive monitoring for toxicity (Heparin, Nitro, Insulin, Cardizem)? @ -No Were any procedures done? @ -No Diagnosis/symptom? @ -Hypokalemia, anemia, hematochezia, hyponatremia Acute, or Chronic, or Acute on Chronic? @ -Acute on chronic Uncomplicated (without systemic symptoms) or Complicated (systemic symptoms)? @ -Complicated Side effects of treatment? @ -No Exacerbation, Progression, or Severe Exacerbation? @ -No Poses a threat to life or bodily function? How? (Chest pain, [place], [place], pneumonia, PE, COPD, DKA, ARF, appy, cholecystitis, CVA, Diverticulitis, Homicidal, Suicidal, threat to staff... and all critical care pts) @ -Hypokalemia, GI bleed (Fuad Cornejo) I spoke with Dr. Mcdermott in regards to the patients care and need to go to the ICU (Liliana Sanchez) - Lab Data Lab Results 10/29/24 10/29/24 10/29/24 Range/Units 10:54 10:54 10:54 WBC 6.5 (3.8-10.6) k/uL RBC 3.51 L (4.30-5.90) m/uL Hgb 7.8 L (13.0-17.5) gm/dL Hct 24.3 L (39.0-53.0) % MCV 69.1 L (80.0-100.0) fL MCH 22.1 L (25.0-35.0) pg MCHC 32.0 (31.0-37.0) g/dL RDW 18.0 H (11.5-15.5) % Plt Count 510 H (150-450) k/uL MPV 6.8 Neutrophils % 64 % Lymphocytes % 22 % Monocytes % 7 % Eosinophils % 2 % Basophils % 0 % Neutrophils # 4.2 (1.3-7.7) k/uL Lymphocytes # 1.5 (1.0-4.8) k/uL Monocytes # 0.5 (0-1.0) k/uL Eosinophils # 0.2 (0-0.7) k/uL Basophils # 0.0 (0-0.2) k/uL Hypochromasia Moderate Anisocytosis Slight Microcytosis Marked PT 10.5 (10.0-12.5) sec INR 0.9 (<1.2) APTT 24.9 (22.0-30.0) sec Sodium (137-145) mmol/L Potassium (3.5-5.1) mmol/L Chloride (98-107) mmol/L Carbon Dioxide (22-30) mmol/L Anion Gap mmol/L BUN (9-20) mg/dL Creatinine (0.66-1.25) mg/dL Est GFR (CKD-EPI)AfAm (>60 ml/min/1.73 sqM) Est GFR (CKD-EPI)NonAf (>60 ml/min/1.73 sqM) Glucose (74-99) mg/dL Plasma Lactic Acid Dave (0.7-2.0) mmol/L Calcium (8.4-10.2) mg/dL Magnesium (1.6-2.3) mg/dL Total Bilirubin (0.2-1.3) mg/dL AST (17-59) U/L ALT (4-49) U/L Alkaline Phosphatase (38-126) U/L Troponin I <0.012 (0.000-0.034) ng/mL Total Protein (6.3-8.2) g/dL Albumin (3.5-5.0) g/dL Stool Occult Blood (Negative) Blood Type Blood Type Confirm Blood Type Recheck Bld Type Recheck Status Antibody Screen Crossmatch Spec Expiration Date 10/29/24 10/29/24 10/29/24 Range/Units 10:54 10:54 11:11 WBC (3.8-10.6) k/uL RBC (4.30-5.90) m/uL Hgb (13.0-17.5) gm/dL Hct (39.0-53.0) % MCV (80.0-100.0) fL MCH (25.0-35.0) pg MCHC (31.0-37.0) g/dL RDW (11.5-15.5) % Plt Count (150-450) k/uL MPV Neutrophils % % Lymphocytes % % Monocytes % % Eosinophils % % Basophils % % Neutrophils # (1.3-7.7) k/uL Lymphocytes # (1.0-4.8) k/uL Monocytes # (0-1.0) k/uL Eosinophils # (0-0.7) k/uL Basophils # (0-0.2) k/uL Hypochromasia Anisocytosis Microcytosis PT (10.0-12.5) sec INR (<1.2) APTT (22.0-30.0) sec Sodium 128 L (137-145) mmol/L Potassium 2.5 L* (3.5-5.1) mmol/L Chloride 87 L (98-107) mmol/L Carbon Dioxide 33 H (22-30) mmol/L Anion Gap 8 mmol/L BUN 14 (9-20) mg/dL Creatinine 1.22 (0.66-1.25) mg/dL Est GFR (CKD-EPI)AfAm 86 (>60 ml/min/1.73 sqM) Est GFR (CKD-EPI)NonAf 74 (>60 ml/min/1.73 sqM) Glucose 115 H (74-99) mg/dL Plasma Lactic Acid Dave 2.0 (0.7-2.0) mmol/L Calcium 8.2 L (8.4-10.2) mg/dL Magnesium 1.7 (1.6-2.3) mg/dL Total Bilirubin 0.3 (0.2-1.3) mg/dL AST 26 (17-59) U/L ALT 14 (4-49) U/L Alkaline Phosphatase 79 (38-126) U/L Troponin I (0.000-0.034) ng/mL Total Protein 6.1 L (6.3-8.2) g/dL Albumin 3.6 (3.5-5.0) g/dL Stool Occult Blood (Negative) Blood Type Blood Type Confirm Blood Type Recheck Bld Type Recheck Status Antibody Screen Crossmatch Spec Expiration Date 10/29/24 10/29/24 10/29/24 Range/Units 14:13 14:17 14:38 WBC (3.8-10.6) k/uL RBC (4.30-5.90) m/uL Hgb (13.0-17.5) gm/dL Hct (39.0-53.0) % MCV (80.0-100.0) fL MCH (25.0-35.0) pg MCHC (31.0-37.0) g/dL RDW (11.5-15.5) % Plt Count (150-450) k/uL MPV Neutrophils % % Lymphocytes % % Monocytes % % Eosinophils % % Basophils % % Neutrophils # (1.3-7.7) k/uL Lymphocytes # (1.0-4.8) k/uL Monocytes # (0-1.0) k/uL Eosinophils # (0-0.7) k/uL Basophils # (0-0.2) k/uL Hypochromasia Anisocytosis Microcytosis PT (10.0-12.5) sec INR (<1.2) APTT (22.0-30.0) sec Sodium (137-145) mmol/L Potassium (3.5-5.1) mmol/L Chloride (98-107) mmol/L Carbon Dioxide (22-30) mmol/L Anion Gap mmol/L BUN (9-20) mg/dL Creatinine (0.66-1.25) mg/dL Est GFR (CKD-EPI)AfAm (>60 ml/min/1.73 sqM) Est GFR (CKD-EPI)NonAf (>60 ml/min/1.73 sqM) Glucose (74-99) mg/dL Plasma Lactic Acid Dave (0.7-2.0) mmol/L Calcium (8.4-10.2) mg/dL Magnesium (1.6-2.3) mg/dL Total Bilirubin (0.2-1.3) mg/dL AST (17-59) U/L ALT (4-49) U/L Alkaline Phosphatase (38-126) U/L Troponin I (0.000-0.034) ng/mL Total Protein (6.3-8.2) g/dL Albumin (3.5-5.0) g/dL Stool Occult Blood NEGATIVE (Negative) Blood Type AB Positive Blood Type Confirm AB Positive Blood Type Recheck No Previous Record Bld Type Recheck Status CABO Indicated Antibody Screen NEGATIVE Crossmatch See Detail Spec Expiration Date 11/01/2024 9654 Disposition Is patient prescribed a controlled substance at d/c from ED?: No Time of Disposition: 15:08 Decision Date: 10/29/24 Decision Time: 15:08 <Fuad Cornejo - Last Filed: 10/29/24 18:16> <Liliana Sanchez - Last Filed: 11/01/24 14:33> Clinical Impression: Low hemoglobin, BRBPR (bright red blood per rectum), Hypokalemia, Hyponatremia Disposition: ADMITTED IP TO THIS HOSP Condition: Fair
[2024-10-29 11:11] LABS: Anisocytosis Slight; Basophils % (A) 0 %; Eosinophils # (A) 0.2 k/uL (0-0.7); Eosinophils % (A) 2 %; HCT 24.3 % (39.0-53.0); HGB 7.8 gm/dL (13.0-17.5); Hypochromasia Moderate; Lymphocytes # (A) 1.5 k/uL (1.0-4.8); Lymphocytes % (A) 22 %; MCH 22.1 pg (25.0-35.0); MCV 69.1 fL (80.0-100.0); Mean Platelet Volume 6.8; Microcytosis Marked; Monocytes # (A) 0.5 k/uL (0-1.0); Monocytes % (A) 7 %; Neutrophils # (A) 4.2 k/uL (1.3-7.7); Neutrophils % (A) 64 %; Platelet Count 510 k/uL (150-450); RBC 3.51 m/uL (4.30-5.90); WBC 6.5 k/uL (3.8-10.6)
[2024-10-29] MEDS: SODIUM CHLORIDE 0.9% 1,000 ML IV STA (11:11)
[2024-10-29 11:24] LABS: ALT 14 U/L (4-49); AST 26 U/L (17-59); African American GFR (CKD) 86 (>60 ml/min/1.73 sqM); Albumin 3.6 g/dL (3.5-5.0); Alkaline Phosphatase 79 U/L (38-126); Anion Gap 8 mmol/L; Blood Urea Nitrogen 14 mg/dL (9-20); Calcium 8.2 mg/dL (8.4-10.2); Carbon Dioxide 33 mmol/L (22-30); Chloride 87 mmol/L (98-107); Glucose 115 mg/dL (74-99); Non-African American GFR(CKD) 74 (>60 ml/min/1.73 sqM); Sodium 128 mmol/L (137-145); Total Bilirubin 0.3 mg/dL (0.2-1.3); Total Protein 6.1 g/dL (6.3-8.2)
[2024-10-29 11:26] LABS: Potassium 2.5 mmol/L (3.5-5.1)
[2024-10-29 11:32] LABS: INR 0.9 (<1.2); Partial Thromboplastin Time 24.9 sec (22.0-30.0); Prothrombin Time 10.5 sec (10.0-12.5)
[2024-10-29] MEDS: SODIUM CHLORIDE 0.9% 500 ML 500 ML IV STA (12:28)
[2024-10-29] MEDS: POTASSIUM CHLORIDE ER 20 MEQ TAB.ER PO STA (12:29)
[2024-10-29] MEDS: POTASSIUM CHLORIDE 20 MEQ in WATER FOR INJECTION 1 100ML.BAG IVPB STA (12:29)
[2024-10-29] MEDS ORDERED: NALOXONE 0.4 MG/ML 1 ML VIAL IV PRN (15:02)
[2024-10-29] MEDS: ACETAMINOPHEN TAB 325 MG TAB PO STA (18:40)
[2024-10-29] MEDS ORDERED: Magnesium Replacement Protocol 1 EACH MISC MISCELLANE PRN (20:22)
[2024-10-29] MEDS ORDERED: LORazepam 2 MG/ML INJ IV PRN ×2 (20:32)
--- NOTE | 2024-10-29 20:32 | P.HPIM ---
History of Present Illness This is a pleasant 39 years old male with past medical history of bleeding disorder, alcohol use disorder. Presents because of feeling dizzy. Patient has chronic dizziness but over the last 2 days has been feeling palpitation and rapid heart rate which concerned him to come to the emergency room Patient has been complaining with bloody bowel movements about 2-3 times per day for over the last 3 days. (Patient has pictures on his phone for his bloody bowel movement) Patient denies abdominal pain no vomiting. No chest pain or dyspnea. No urinary complaint. No headache weakness numbness or tingling He smokes about 1 pack/day and he was counseled to quit and he agrees to quit but he declines nicotine patch. Patient states he takes few drinks of liquor every night. Also he admits to using marijuana Patient and mother at bedside report having symptoms of severe acid reflux and him and her family with regurgitation of acid and dental caries as per his mother Patient denies using pain medication or blood thinners recently On admission blood pressure was on the low side 85/57, currently slightly improved with no significant tachycardia Hemoglobin 7.8, potassium low at 2.5 sodium low 128 Creatinine 1.2 Orthostatic or positive Occult blood in the stool was positive EKG showing sinus rhythm at 94/min with no significant ST-T wave Review of Systems Review of systems CONSTITUTIONAL: No fever, no malaise, no fatigue. HEENT: No recent visual problems or hearing problems. Denied any sore throat. CARDIOVASCULAR: No orthopnea, PND, no palpitations, no syncope. PULMONARY: No shortness of breath, no cough, no hemoptysis. GASTROINTESTINAL: No diarrhea, no nausea, no vomiting, no abdominal pain. Normoactive bowel sounds. NEUROLOGICAL: No headaches, no weakness, no numbness. -HEMATOLOGICAL: As above GENITOURINARY: Denies any burning micturition, frequency, or urgency. MUSCULOSKELETAL/RHEUMATOLOGICAL: Denies any joint pain, swelling, or any muscle pain. ENDOCRINE: Denies any polyuria or polydipsia. Past Medical History Past Medical History: Blood Disorder, GERD/Reflux, Hypertension Additional Past Medical History / Comment(s): hiatal hernia.ANEMIA History of Any Multi-Drug Resistant Organisms: None Reported Past Surgical History: Bowel Resection Additional Past Surgical History / Comment(s): surg. on stomach as a baby for frequent vomiting Past Anesthesia/Blood Transfusion Reactions: No Reported Reaction Past Psychological History: No Psychological Hx Reported Smoking Status: Current every day smoker Past Alcohol Use History: Daily Past Drug Use History: Marijuana - Past Family History Mother Family Medical History: Cancer Additional Family Medical History / Comment(s): pt's. grandfather has MTHFR gene Medications and Allergies Home Medications Medication Instructions Recorded Confirmed Type Lisinopril-Hctz 20-25 mg 1 tab PO DAILY 10/04/19 10/29/24 History [Zestoretic 20-25] amLODIPine [Norvasc] 5 mg PO DAILY 10/04/19 10/29/24 History Famotidine 40 mg PO BID 11/29/23 10/29/24 History Levalbuterol Hfa Inhaler [Xopenex 2 puff INHALATION RT-Q4H PRN 11/29/23 10/29/24 History Hfa Inhaler] Loratadine 10 mg PO DAILY 11/29/23 10/29/24 History Multivitamins, Thera [Multivitamin 1 tab PO DAILY 11/29/23 10/29/24 History (formulary)] Fluticasone Propion/Salmeterol 1 puff INHALATION RT-BID PRN 10/29/24 10/29/24 History [Advair 250-50 Diskus] Magnesium Oxide [Mag-Ox] 400 mg PO BID 10/29/24 10/29/24 History Omeprazole [PriLOSEC] 40 mg PO DAILY 10/29/24 10/29/24 History Allergies Allergy/AdvReac Type Severity Reaction Status Date / Time No Known Allergies Allergy Verified 10/29/24 15:16 Physical Exam Vitals: Vital Signs Temp Pulse Pulse Resp BP BP BP 10/29/24 20:09 99.5 F 92 18 108/78 10/29/24 19:33 98.9 F 89 18 99/66 10/29/24 18:15 98.6 F 93 18 115/77 10/29/24 17:55 98.6 F 86 16 109/70 10/29/24 17:40 98.4 F 89 18 110/71 10/29/24 17:00 85 16 112/76 10/29/24 12:08 98.4 F 95 16 112/74 101/67 10/29/24 10:20 98.4 F 121 H 22 85/57 BP Pulse Ox 10/29/24 20:09 98 12/10/24 19:33 97 10/29/24 18:15 97 10/29/24 17:55 96 10/29/24 17:40 96 10/29/24 17:00 96 10/29/24 12:08 75/49 10/29/24 10:20 94 L Intake and Output 10/29/24 10/29/24 10/29/24 06:59 14:59 22:59 Intake Total 0 Balance 0 Intake: Blood Product 0 Rc Pheresis 2 As3 Unit 0 [id number] Other: Weight 74.843 kg GENERAL: The patient is alert and oriented x3, not in any acute distress. Well developed, well nourished. HEENT: Pupils are round and equally reacting to light. EOMI. No scleral icterus. No conjunctival pallor. Normocephalic, atraumatic. No pharyngeal erythema. No thyromegaly. CARDIOVASCULAR: S1 and S2 present. No murmurs, rubs, or gallops. PULMONARY: Chest is clear to auscultation, no wheezing , no crackles. ABDOMEN: Soft, nontender, nondistended, normoactive bowel sounds. No palpable organomegaly. MUSCULOSKELETAL: No joint swelling or deformity. EXTREMITIES: No cyanosis, clubbing, or pedal edema. NEUROLOGICAL: Gross neurological examination did not reveal any focal deficits. SKIN: No rashes. no petechiae. Results CBC & Chem 7: 10/29/24 10:54 10/29/24 10:54 Labs: Abnormal Lab Results - Last 24 Hours (Table) 10/29/24 10/29/24 10/29/24 Range/Units 10:54 10:54 14:13 RBC 3.51 L (4.30-5.90) m/uL Hgb 7.8 L (13.0-17.5) gm/dL Hct 24.3 L (39.0-53.0) % MCV 69.1 L (80.0-100.0) fL MCH 22.1 L (25.0-35.0) pg RDW 18.0 H (11.5-15.5) % Plt Count 510 H (150-450) k/uL Sodium 128 L (137-145) mmol/L Potassium 2.5 L* (3.5-5.1) mmol/L Chloride 87 L (98-107) mmol/L Carbon Dioxide 33 H (22-30) mmol/L Glucose 115 H (74-99) mg/dL Calcium 8.2 L (8.4-10.2) mg/dL Total Protein 6.1 L (6.3-8.2) g/dL Crossmatch See Detail Assessment and Plan Assessment: Acute GI bleed Hypotension secondary to above Electrolyte abnormality with hypokalemia and hyponatremia Alcohol use disorder Nicotine dependence Substance abuse with marijuana History of hypertension, currently patient was hypotensive Patient states that he has history of hemorrhoids Plan: Monitor hemoglobin Agree of transfusing 1 unit of blood given symptomatic bloody bowel movement Admit the patient to the intensive care unit with close monitoring with pulmonary critical team consult GI team consult Replace potassium and magnesium per protocol Continue with IV fluid Start IV Protonix twice daily Start CIWA protocol and thiamine Further recommendation based on the clinical course DVT prophylaxis: Mechanical, no anticoagulation because of bleeding GI prophylaxis Protonix Prognosis is guarded
[2024-10-29 20:59] LABS: Anisocytosis Slight; HCT 26.7 % (39.0-53.0); HGB 8.4 gm/dL (13.0-17.5); Hypochromasia Marked; MCH 23.2 pg (25.0-35.0); MCHC 31.6 g/dL (31.0-37.0); MCV 73.6 fL (80.0-100.0); Magnesium 1.8 mg/dL (1.6-2.3); Mean Platelet Volume 6.9; Microcytosis Moderate; Platelet Count 484 k/uL (150-450); Poikilocytosis Slight; RBC 3.62 m/uL (4.30-5.90); RDW 18.4 % (11.5-15.5); WBC 5.3 k/uL (3.8-10.6)
[2024-10-29] MEDS ORDERED: amLODIPine 5 MG TAB PO SCH (21:00)
[2024-10-29 21:10] LABS: Potassium 2.6 mmol/L (3.5-5.1)
[2024-10-29 21:19] LABS: Glucose,Whole Blood 118 mg/dL (70-110)
[2024-10-29] MEDS: POTASSIUM CHLORIDE ER 20 MEQ TAB.ER PO SCH (21:53)
[2024-10-29] MEDS: MAGNESIUM SULFATE-D5W PMX 1 GM in DEXTROSE/WATER 1 100ML.BAG IVPB ONE (21:53)
[2024-10-29] MEDS: PANTOPRAZOLE 40 MG/10 ML VIAL IVP SCH (21:53)
[2024-10-30] MEDS: NICOTINE 21MG/24HR PATCH TRANSDERM SCH (00:21)
[2024-10-30] MEDS ORDERED: ALBUTEROL NEBULIZED 2.5 MG/3 ML INHALATION PRN (01:35)
[2024-10-30] MEDS: POTASSIUM CHLORIDE ER 20 MEQ TAB.ER PO SCH ×4 (02:50→20:29)
--- NOTE | 2024-10-30 05:25 | P.CNPUL ---
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 Patient states that over the last year or so he has had intermittent episodes of bright red rectal bleeding, usually subsides on its own. States that he has had recent colonoscopy within the last year. He does have known history of internal and external hemorrhoids. He is also known to be anemic and has received iron infusions in the past. Over the past week, he has had increased bright red blood per rectum. Approximately 2-3 bowel movements per day. He has been symptomatic reporting dizziness on standing, heart palpitations, and exertional shortness of breath. Yesterday, when he got out of the shower he was particularly symptomatic. Finally, came to the hospital for evaluation. Has had 2 bright red bowel movement so far. Denies any nausea or v omiting or hematemesis. Appetite has been poor over last couple days. Denies weight loss. Denies abdominal pain. Denies rectal pain. Denies NSAID use. Labs on arrival include a CBC: WBC count 6.5, hemoglobin 7.8, hematocrit 24.3, platelets 510. CMP: Sodium 128, potassium 2.5, chloride 87, serum bicarb 33, BUN 14, creatinine 1.02, glucose 115. Lactic 2. Magnesium 1.7. LFTs unremarkable. Troponin less than 0.012. Stool occult positive. Patient is currently being evaluated in the intensive care unit as a 3 south overflow. Current vitals: Temperature 98 F, blood pressure 100/70 mmHg, heart rate 86 bpm, respirations 16 and nonlabored, SpO2 100% on room air oxygen. Patient has received 1 unit PRBCs. GI is consulted. Potassium is being replaced per dc col. Review of Systems Constitutional: Denies chills, Denies fever, Denies poor appetite, Denies weight gain, Denies weight loss Ears, nose, mouth and throat: Denies epistaxis, Denies nasal congestion, Denies nasal discharge, Denies post-nasal drip, Denies sinus pain, Denies sinus pressure, Denies sore throat Cardiovascular: Reports dyspnea on exertion, Reports lightheadedness, Reports palpitations, Denies chest pain, Denies irregular heart beat, Denies orthopnea, Denies paroxysmal nocturnal dyspnea, Denies syncope Respiratory: Denies cough, Denies dyspnea, Denies excessive sputum, Denies home oxygen, Denies wheezing Gastrointestinal: Reports as per HPI Genitourinary: Denies dysuria Musculoskeletal: Denies limitation of motion Integumentary: Denies rash Neurological: Denies seizures, Denies syncope Psychiatric: Denies anxiety, Denies depression Past Medical History Past Medical History: Blood Disorder, GERD/Reflux, Hypertension Additional Past Medical History / Comment(s): hiatal hernia.ANEMIA History of Any Multi-Drug Resistant Organisms: None Reported Past Surgical History: Bowel Resection Additional Past Surgical History / Comment(s): surg. on stomach as a baby for frequent vomiting Past Anesthesia/Blood Transfusion Reactions: No Reported Reaction Past Psychological History: No Psychological Hx Reported Smoking Status: Current every day smoker Past Alcohol Use History: Daily Additional Past Alcohol Use History / Comment(s): 1 ppd daily use Past Drug Use History: Marijuana Additional Drug Use History / Comment(s): daily use - Past Family History Mother Family Medical History: Cancer Additional Family Medical History / Comment(s): pt's. grandfather has MTHFR gene Medications and Allergies Home Medications Medication Instructions Recorded Confirmed Type Lisinopril-Hctz 20-25 mg 1 tab PO DAILY 10/04/19 10/29/24 History [Zestoretic 20-25] amLODIPine [Norvasc] 5 mg PO DAILY 10/04/19 10/29/24 History Famotidine 40 mg PO BID 11/29/23 10/29/24 History Levalbuterol Hfa Inhaler [Xopenex 2 puff INHALATION RT-Q4H PRN 11/29/23 10/29/24 History Hfa Inhaler] Loratadine 10 mg PO DAILY 11/29/23 10/29/24 History Multivitamins, Thera [Multivitamin 1 tab PO DAILY 11/29/23 10/29/24 History (formulary)] Fluticasone Propion/Salmeterol 1 puff INHALATION RT-BID PRN 10/29/24 10/29/24 History [Advair 250-50 Diskus] Magnesium Oxide [Mag-Ox] 400 mg PO BID 10/29/24 10/29/24 History Omeprazole [PriLOSEC] 40 mg PO DAILY 10/29/24 10/29/24 History Allergies Allergy/AdvReac Type Severity Reaction Status Date / Time No Known Allergies Allergy Verified 10/29/24 15:16 Physical Exam Vitals: Vital Signs Temp Pulse Pulse Resp BP BP BP 10/30/24 00:00 98.0 F 87 16 10/29/24 21:27 98.2 F 92 16 113/78 10/29/24 20:44 98.7 F 88 18 95/67 10/29/24 20:12 99.5 F 89 18 108/78 10/29/24 20:09 99.5 F 92 18 108/78 10/29/24 19:33 98.9 F 89 18 99/66 10/29/24 18:15 98.6 F 93 18 115/77 10/29/24 17:55 98.6 F 86 16 109/70 10/29/24 17:40 98.4 F 89 18 110/71 10/29/24 17:00 85 16 112/76 10/29/24 12:08 98.4 F 95 16 112/74 101/67 10/29/24 10:20 98.4 F 121 H 22 85/57 BP Pulse Ox 10/30/24 00:00 100/70 100 10/29/24 21:27 100 10/29/24 20:44 96 10/29/24 20:12 96 10/29/24 20:09 98 10/29/24 19:33 97 10/29/24 18:15 97 10/29/24 17:55 96 10/29/24 17:40 96 10/29/24 17:00 96 10/29/24 12:08 75/49 10/29/24 10:20 94 L Intake and Output 10/29/24 10/29/24 10/30/24 14:59 22:59 06:59 Intake Total 281 Balance 281 Intake: Blood Product 281 Rc Pheresis 2 As3 Unit 281 [id number] Other: # Voids 3 # Bowel Movements 1 Weight 74.843 kg 74.843 kg GENERAL EXAM: Alert, 39-year-old well-nourished male, comfortable in no apparent distress. HEAD: Normocephalic and atraumatic EYES: Normal reaction of pupils, equal size. NOSE: Clear with pink turbinates. THROAT: No erythema or exudates. NECK: No masses, no JVD. CHEST: No chest wall deformity. LUNGS: Equal air entry with no crackles, wheeze, rhonchi or dullness. On room air. No conversational dyspnea or accessory muscle use.. CVS: S1 and S2 normal with no audible murmur, regular rhythm. No extra heart sounds ABDOMEN: No hepatosplenomegaly, active bowel sounds, no guarding or rigidity. SPINE: No scoliosis or deformity SKIN: No rashes CENTRAL NERVOUS SYSTEM: No focal deficits, tone is normal in all 4 extremities. EXTREMITIES: There is no peripheral edema, clubbing, or cyanosis. Peripheral pulses are intact. External hemorrhoids noted Results - Laboratory Findings CBC and BMP: 10/29/24 20:29 10/30/24 01:30 PT/INR, D-dimer PT 10.5 sec (10.0-12.5) 10/29/24 10:54 INR 0.9 (<1.2) 10/29/24 10:54 Abnormal lab findings: Abnormal Labs 10/29/24 10/29/24 10/29/24 10:54 10:54 14:13 RBC 3.51 L Hgb 7.8 L Hct 24.3 L MCV 69.1 L MCH 22.1 L RDW 18.0 H Plt Count 510 H Sodium 128 L Potassium 2.5 L* Chloride 87 L Carbon Dioxide 33 H Glucose 115 H POC Glucose (mg/dL) Calcium 8.2 L Total Protein 6.1 L Crossmatch See Detail 10/29/24 10/29/24 10/29/24 20:29 20:29 21:17 RBC 3.62 L Hgb 8.4 L Hct 26.7 L MCV 73.6 L MCH 23.2 L RDW 18.4 H Plt Count 484 H Sodium Potassium 2.6 L* Chloride Carbon Dioxide Glucose POC Glucose (mg/dL) 118 H Calcium Total Protein Crossmatch Assessment and Plan Assessment: GI bleed, with known history of internal and external hemorrhoids Acute blood loss anemia, symptomatic with a hemoglobin of 7.8 g/dL, status post 1 unit PRBCs Severe hypokalemia, replace per protocol History of hypertension GERD Current ongoing tobacco dependence, reportedly smokes 1 pack/day Mild chronic obstructive pulmonary disease, with a FEV1/FVC ratio 65, FEV1 76% of predicted, FVC 93% of predicted, DLCO uncorrected for hemoglobin 81% of predicted Alcohol abuse, reportedly drinks 2-3 vodka and Cokes per day Plan: Patient's medications and labs reviewed Hemoglobin is up to 8.4 g/dL after one unit PRBCs While inpatient, patient has had 2 bright red bowel movements Known history of internal and external hemorrhoids. GI is consulted Potassium was replaced per protocol, recheck is pending Patient counseled on smoking cessation, nicotine patch offered Resume maintenance COPD medications, currently inactive Monitor CIWA per protocol. Patient also counseled on drinking in moderation Patient is admitted in the intensive care unit as a 3 S. overflow We will continue to follow I have personally seen and examined the patient, performed the documentation and the assessment and plan as written. Number of minutes spent on the visit:20 Time with Patient: Greater than 30
[2024-10-30 06:02] LABS: Anisocytosis Slight; Basophils % (A) 1 %; Eosinophils # (A) 0.2 k/uL (0-0.7); Eosinophils % (A) 3 %; HCT 29.1 % (39.0-53.0); HGB 8.7 gm/dL (13.0-17.5); Hypochromasia Marked; Lymphocytes # (A) 1.5 k/uL (1.0-4.8); Lymphocytes % (A) 26 %; MCH 22.3 pg (25.0-35.0); MCHC 29.8 g/dL (31.0-37.0); MCV 74.8 fL (80.0-100.0); Mean Platelet Volume 7.5; Microcytosis Moderate; Monocytes # (A) 0.4 k/uL (0-1.0); Monocytes % (A) 7 %; Neutrophils # (A) 3.6 k/uL (1.3-7.7); Neutrophils % (A) 61 %; Platelet Count 575 k/uL (150-450); Poikilocytosis Moderate; RBC 3.88 m/uL (4.30-5.90); RDW 18.4 % (11.5-15.5); WBC 5.9 k/uL (3.8-10.6)
[2024-10-30 06:15] LABS: ALT 14 U/L (4-49); AST 30 U/L (17-59); African American GFR (CKD) >90 (>60 ml/min/1.73 sqM); Albumin 3.5 g/dL (3.5-5.0); Alkaline Phosphatase 85 U/L (38-126); Anion Gap 5 mmol/L; Bilirubin,Unconjugated 0.7 mg/dL (0.0-1.1); Blood Urea Nitrogen 9 mg/dL (9-20); Calcium 8.9 mg/dL (8.4-10.2); Carbon Dioxide 34 mmol/L (22-30); Chloride 99 mmol/L (98-107); Glucose 108 mg/dL (74-99); Magnesium 2.2 mg/dL (1.6-2.3); Non-African American GFR(CKD) >90 (>60 ml/min/1.73 sqM); Potassium 3.5 mmol/L (3.5-5.1); Sodium 138 mmol/L (137-145); Total Bilirubin 0.7 mg/dL (0.2-1.3)
--- NOTE | 2024-10-30 08:50 | P.PN ---
Subjective This is a pleasant 39 years old male with past medical history of bleeding disorder, alcohol use disorder. Presents because of feeling dizzy. Patient has chronic dizziness but over the last 2 days has been feeling palpitation and rapid heart rate which concerned him to come to the emergency room Patient has been complaining with bloody bowel movements about 2-3 times per day for over the last 3 days. (Patient has pictures on his phone for his bloody bowel movement) Patient denies abdominal pain no vomiting. No chest pain or dyspnea. No urinary complaint. No headache weakness numbness or tingling He smokes about 1 pack/day and he was counseled to quit and he agrees to quit but he declines nicotine patch. Patient states he takes few drinks of liquor every night. Also he admits to using marijuana Patient and mother at bedside report having symptoms of severe acid reflux and him and her family with regurgitation of acid and dental caries as per his mother Patient denies using pain medication or blood thinners recently On admission blood pressure was on the low side 85/57, currently slightly improved with no significant tachycardia Hemoglobin 7.8, potassium low at 2.5 sodium low 128 Creatinine 1.2 Orthostatic or positive Occult blood in the stool was positive EKG showing sinus rhythm at 94/min with no significant ST-T wave 10/30 Patient is currently in the ICU at [facility] Patient denies abdominal pain, no other pain History reports bloody bowel movement but not checked by staff. Patient is counseled Hemoglobin is 8.7 today status post 1 unit of blood transfusion yesterday No overt signs symptoms of withdrawal He remains on IV protocol and normal saline 75 mL/h Review of systems CONSTITUTIONAL: No fever, no malaise, no fatigue. HEENT: No recent visual problems or hearing problems. Denied any sore throat. CARDIOVASCULAR: No orthopnea, PND, no palpitations, no syncope. PULMONARY: No shortness of breath, no cough, no hemoptysis. GASTROINTESTINAL: No diarrhea, no nausea, no vomiting, no abdominal pain. Normoactive bowel sounds. NEUROLOGICAL: No headaches, no weakness, no numbness. HEMATOLOGICAL: Denies any bleeding or petechiae. Active Medications Generic Name Dose Route Start Last Admin Trade Name Freq PRN Reason Stop Dose Admin Albuterol Sulfate 2.5 mg 10/30/24 01:35 Albuterol Nebulized 2.5 Mg/3 Ml INHALATION RT-QID PRN Shortness Of Breath Or Wheezing Lorazepam 2 mg 10/29/24 20:32 Lorazepam 2 Mg/Ml Inj IV 10/31/24 20:32 Q10M PRN CIWA 16 or higher Lorazepam 1 mg 10/29/24 20:32 Lorazepam 2 Mg/Ml Inj IV Q2HR PRN CIWA 8 or 9 Lorazepam 1 mg 10/29/24 20:32 Lorazepam 2 Mg/Ml Inj IV Q1HR PRN CIWA 10 to 15 Miscellaneous Information 1 each 10/29/24 20:22 Magnesium Replacement Protocol 1 Each Misc MISCELLANE DAILY PRN Per Protocol Protocol Naloxone HCl 0.2 mg 10/29/24 15:02 Naloxone 0.4 Mg/Ml 1 Ml Vial IV Q2M PRN Opioid Reversal Nicotine 1 patch 10/29/24 23:45 10/30/24 00:21 Nicotine 21mg/24hr Patch TRANSDERM 1 patch DAILY DUTCH Administration Pantoprazole Sodium 40 mg 10/29/24 21:00 10/29/24 21:53 Pantoprazole 40 Mg/10 Ml Vial IVP 40 mg BID DUTCH Administration Thiamine HCl 100 mg 10/30/24 09:00 Thiamine 100 Mg Tab PO DAILY DUTCH Objective - Vital Signs Vital signs: Vital Signs Temp 98.2 F 10/30/24 04:00 Pulse 98 10/30/24 04:00 Resp 15 10/30/24 04:00 BP 106/74 10/30/24 04:00 Pulse Ox 99 10/30/24 04:00 FiO2 Intake & Output 10/29/24 10/30/24 10/30/24 18:59 06:59 18:59 Intake Total 0 281 Output Total 450 Balance 0 -169 Weight 74.843 kg 68 kg Intake: Blood Product 0 281 Rc Pheresis 2 As3 Unit 0 281 [id number] Output: Urine 450 Other: Voiding Method Toilet Urinal # Voids 3 # Bowel Movements 1 - Exam GENERAL: The patient is alert and oriented x3, not in any acute distress. Well developed, well nourished. HEENT: Pupils are round and equally reacting to light. EOMI. No scleral icterus. No conjunctival pallor. Normocephalic, atraumatic. No pharyngeal erythema. No thyromegaly. CARDIOVASCULAR: S1 and S2 present. No murmurs, rubs, or gallops. PULMONARY: Chest is clear to auscultation, no wheezing , no crackles. ABDOMEN: Soft, nontender, nondistended, normoactive bowel sounds. No palpable organomegaly. MUSCULOSKELETAL: No joint swelling or deformity. EXTREMITIES: No cyanosis, clubbing, or pedal edema. NEUROLOGICAL: Gross neurological examination did not reveal any focal deficits. SKIN: No rashes. no petechiae. - Labs CBC & Chem 7: 10/30/24 05:29 10/30/24 05:29 Labs: Abnormal Lab Results - Last 24 Hours (Table) 10/29/24 10/29/24 10/29/24 Range/Units 10:54 10:54 14:13 RBC 3.51 L (4.30-5.90) m/uL Hgb 7.8 L (13.0-17.5) gm/dL Hct 24.3 L (39.0-53.0) % MCV 69.1 L (80.0-100.0) fL MCH 22.1 L (25.0-35.0) pg MCHC (31.0-37.0) g/dL RDW 18.0 H (11.5-15.5) % Plt Count 510 H (150-450) k/uL Sodium 128 L (137-145) mmol/L Potassium 2.5 L* (3.5-5.1) mmol/L Chloride 87 L (98-107) mmol/L Carbon Dioxide 33 H (22-30) mmol/L Glucose 115 H (74-99) mg/dL POC Glucose (mg/dL) (70-110) mg/dL Calcium 8.2 L (8.4-10.2) mg/dL Total Protein 6.1 L (6.3-8.2) g/dL Crossmatch See Detail 10/29/24 10/29/24 10/29/24 Range/Units 20:29 20:29 21:17 RBC 3.62 L (4.30-5.90) m/uL Hgb 8.4 L (13.0-17.5) gm/dL Hct 26.7 L (39.0-53.0) % MCV 73.6 L (80.0-100.0) fL MCH 23.2 L (25.0-35.0) pg MCHC (31.0-37.0) g/dL RDW 18.4 H (11.5-15.5) % Plt Count 484 H (150-450) k/uL Sodium (137-145) mmol/L Potassium 2.6 L* (3.5-5.1) mmol/L Chloride (98-107) mmol/L Carbon Dioxide (22-30) mmol/L Glucose (74-99) mg/dL POC Glucose (mg/dL) 118 H (70-110) mg/dL Calcium (8.4-10.2) mg/dL Total Protein (6.3-8.2) g/dL Crossmatch 10/30/24 10/30/24 10/30/24 Range/Units 01:30 05:29 05:29 RBC 3.88 L (4.30-5.90) m/uL Hgb 8.7 L (13.0-17.5) gm/dL Hct 29.1 L (39.0-53.0) % MCV 74.8 L (80.0-100.0) fL MCH 22.3 L (25.0-35.0) pg MCHC 29.8 L (31.0-37.0) g/dL RDW 18.4 H (11.5-15.5) % Plt Count 575 H (150-450) k/uL Sodium (137-145) mmol/L Potassium 2.6 L* (3.5-5.1) mmol/L Chloride (98-107) mmol/L Carbon Dioxide 34 H (22-30) mmol/L Glucose 108 H (74-99) mg/dL POC Glucose (mg/dL) (70-110) mg/dL Calcium (8.4-10.2) mg/dL Total Protein 6.0 L (6.3-8.2) g/dL Crossmatch Assessment and Plan Assessment: Acute GI bleed Hypotension secondary to above Electrolyte abnormality with hypokalemia and hyponatremia Alcohol use disorder Nicotine dependence Substance abuse with marijuana History of hypertension, currently patient was hypotensive Patient states that he has history of hemorrhoids Plan: Monitor hemoglobin Agree of transfusing 1 unit of blood Admit the patient to the intensive care unit with close monitoring with pulmonary critical team consult GI team consult Replace potassium and magnesium per protocol Continue with IV fluid Start IV Protonix twice daily Start CIWA protocol and thiamine Further recommendation based on the clinical course DVT prophylaxis: Mechanical, no anticoagulation because of bleeding GI prophylaxis Protonix Prognosis is guarded
[2024-10-30] MEDS ORDERED: LISINOPRIL-HCTZ 20-25 MG 1 EACH TAB PO SCH (09:00)
[2024-10-30] MEDS: THIAMINE 100 MG TAB PO SCH (09:05)
--- NOTE | 2024-10-30 12:23 | P.CONS ---
History of Present Illness - Reason for Consult Consult date: 10/30/24 Possible GI bleed Requesting physician: Fuad Cornejo - Chief Complaint Rectal bleeding - History of Present Illness This a pleasant 39-year-old male with a past medical history of rectal bleeding with diagnosed internal and external hemorrhoids. Patient also has history of iron deficiency anemia and requires iron infusions about every 2 months. Patient states over the last week he has been having quite a significant amount of bright red blood per rectum with bowel movements. He states usually monthly he will get episodes and that will last about 1 week, and this has been going on for last 1 to 2 years. He states his last colonoscopy was within the last year done by Dr. Ramírez at [facility]. He is unsure of the findings. States he has followed with Dr. Gonzalez as well for possible hemorrhoidectomy however he did not move forward with the surgery. On admission patient had hemoglobin of 7.8 was transfused 1 unit of blood. Repeat hemoglobin today is 8.7. He denies any associated abdominal pain. States that he has a little mild discomfort with bowel movement and his last bowel movement was this morning which was all bright red blood in the toilet. Review of Systems REVIEW OF SYSTEMS: CARDIOPULMONARY: No chest pain or shortness of breath. Gastrointestinal: No abdominal pain. No nausea or vomiting. No hematemesis, coffee-ground emesis. Bright red blood per rectum. GENITOURINARY: No dysuria or hematuria. MUSCULOSKELETAL: Reports normal range of motion. SKIN: No rashes. No jaundice. ENDOCRINE: No chills, fevers. No excessive weight gain or loss. No polydipsia or polyuria. PSYCHIATRIC: Unremarkable. NEUROLOGY: No change in mental status. Denies dizziness, headache. ENT: Vision unremarkable. CONSTITUTIONAL: No recent weight loss. No fever, chills, night sweats. Past Medical History Past Medical History: Blood Disorder, GERD/Reflux, Hypertension Additional Past Medical History / Comment(s): hiatal hernia.ANEMIA History of Any Multi-Drug Resistant Organisms: None Reported Past Surgical History: Bowel Resection Additional Past Surgical History / Comment(s): surg. on stomach as a baby for frequent vomiting Past Anesthesia/Blood Transfusion Reactions: No Reported Reaction Past Psychological History: No Psychological Hx Reported Smoking Status: Current every day smoker Past Alcohol Use History: Daily Additional Past Alcohol Use History / Comment(s): 1 ppd daily use Past Drug Use History: Marijuana Additional Drug Use History / Comment(s): daily use - Past Family History Mother Family Medical History: Cancer Additional Family Medical History / Comment(s): pt's. grandfather has MTHFR gene Medications and Allergies Home Medications Medication Instructions Recorded Confirmed Type Lisinopril-Hctz 20-25 mg 1 tab PO DAILY 10/04/19 10/29/24 History [Zestoretic 20-25] amLODIPine [Norvasc] 5 mg PO DAILY 10/04/19 10/29/24 History Famotidine 40 mg PO BID 11/29/23 10/29/24 History Levalbuterol Hfa Inhaler [Xopenex 2 puff INHALATION RT-Q4H PRN 11/29/23 10/29/24 History Hfa Inhaler] Loratadine 10 mg PO DAILY 11/29/23 10/29/24 History Multivitamins, Thera [Multivitamin 1 tab PO DAILY 11/29/23 10/29/24 History (formulary)] Fluticasone Propion/Salmeterol 1 puff INHALATION RT-BID PRN 10/29/24 10/29/24 History [Advair 250-50 Diskus] Magnesium Oxide [Mag-Ox] 400 mg PO BID 10/29/24 10/29/24 History Omeprazole [PriLOSEC] 40 mg PO DAILY 10/29/24 10/29/24 History Allergies Allergy/AdvReac Type Severity Reaction Status Date / Time No Known Allergies Allergy Verified 10/29/24 15:16 Physical Exam Vitals: Vital Signs Temp Pulse Pulse Resp BP BP BP 10/30/24 04:00 98.2 F 98 15 10/30/24 00:00 98.0 F 87 16 10/29/24 21:27 98.2 F 92 16 113/78 10/29/24 20:44 98.7 F 88 18 95/67 10/29/24 20:12 99.5 F 89 18 108/78 10/29/24 20:09 99.5 F 92 18 108/78 10/29/24 19:33 98.9 F 89 18 99/66 10/29/24 18:15 98.6 F 93 18 115/77 10/29/24 17:55 98.6 F 86 16 109/70 10/29/24 17:40 98.4 F 89 18 110/71 10/29/24 17:00 85 16 112/76 10/29/24 12:08 98.4 F 95 16 112/74 101/67 10/29/24 10:20 98.4 F 121 H 22 85/57 BP Pulse Ox 10/30/24 04:00 106/74 99 10/30/24 00:00 100/70 100 10/29/24 21:27 100 10/29/24 20:44 96 10/29/24 20:12 96 10/29/24 20:09 98 10/29/24 19:33 97 10/29/24 18:15 97 10/29/24 17:55 96 10/29/24 17:40 96 10/29/24 17:00 96 10/29/24 12:08 75/49 10/29/24 10:20 94 L Intake and Output 10/29/24 10/30/24 10/30/24 22:59 06:59 14:59 Intake Total 281 Output Total 450 Balance 281 -450 Intake: Blood Product 281 Rc Pheresis 2 As3 Unit 281 [id number] Output: Urine 450 Other: Voiding Method Toilet Urinal # Voids 3 3 # Bowel Movements 1 1 Weight 74.843 kg 68 kg General appearance: The patient is alert, oriented, appears in no acute distress. HET: Head is normocephalic and atraumatic. Conjunctiva pink. Sclera anicteric. Neck: Supple without lymphadenopathy. Trachea midline. Heart: Regular. Lungs: Equal expansion, normal respiratory effort. Abdomen: Soft, nontender, nondistended. Skin: No rashes. No jaundice. Extremities: Normal skin color and turgor. No pedal edema. Neurological: No focal deficits. Alert and oriented x3. Results CBC & Chem 7: 10/30/24 12:31 10/30/24 09:52 Labs: Abnormal Lab Results - Last 24 Hours (Table) 10/29/24 10/29/24 10/29/24 Range/Units 10:54 10:54 14:13 RBC 3.51 L (4.30-5.90) m/uL Hgb 7.8 L (13.0-17.5) gm/dL Hct 24.3 L (39.0-53.0) % MCV 69.1 L (80.0-100.0) fL MCH 22.1 L (25.0-35.0) pg MCHC (31.0-37.0) g/dL RDW 18.0 H (11.5-15.5) % Plt Count 510 H (150-450) k/uL Sodium 128 L (137-145) mmol/L Potassium 2.5 L* (3.5-5.1) mmol/L Chloride 87 L (98-107) mmol/L Carbon Dioxide 33 H (22-30) mmol/L Glucose 115 H (74-99) mg/dL POC Glucose (mg/dL) (70-110) mg/dL Calcium 8.2 L (8.4-10.2) mg/dL Total Protein 6.1 L (6.3-8.2) g/dL Crossmatch See Detail 10/29/24 10/29/24 10/29/24 Range/Units 20:29 20:29 21:17 RBC 3.62 L (4.30-5.90) m/uL Hgb 8.4 L (13.0-17.5) gm/dL Hct 26.7 L (39.0-53.0) % MCV 73.6 L (80.0-100.0) fL MCH 23.2 L (25.0-35.0) pg MCHC (31.0-37.0) g/dL RDW 18.4 H (11.5-15.5) % Plt Count 484 H (150-450) k/uL Sodium (137-145) mmol/L Potassium 2.6 L* (3.5-5.1) mmol/L Chloride (98-107) mmol/L Carbon Dioxide (22-30) mmol/L Glucose (74-99) mg/dL POC Glucose (mg/dL) 118 H (70-110) mg/dL Calcium (8.4-10.2) mg/dL Total Protein (6.3-8.2) g/dL Crossmatch 10/30/24 10/30/24 10/30/24 Range/Units 01:30 05:29 05:29 RBC 3.88 L (4.30-5.90) m/uL Hgb 8.7 L (13.0-17.5) gm/dL Hct 29.1 L (39.0-53.0) % MCV 74.8 L (80.0-100.0) fL MCH 22.3 L (25.0-35.0) pg MCHC 29.8 L (31.0-37.0) g/dL RDW 18.4 H (11.5-15.5) % Plt Count 575 H (150-450) k/uL Sodium (137-145) mmol/L Potassium 2.6 L* (3.5-5.1) mmol/L Chloride (98-107) mmol/L Carbon Dioxide 34 H (22-30) mmol/L Glucose 108 H (74-99) mg/dL POC Glucose (mg/dL) (70-110) mg/dL Calcium (8.4-10.2) mg/dL Total Protein 6.0 L (6.3-8.2) g/dL Crossmatch Assessment and Plan (1) BRBPR (bright red blood per rectum) Narrative/Plan: 39-year-old male presenting with bright red blood per rectum with a history of internal and external hemorrhoids with previous GI bleeds. Last colonoscopy within the last year report not available at this time. History of iron deficiency anemia they believe likely secondary to hemorrhoidal bleeding. Has had previous consult with general surgery however had not pursued hemorrhoidectomy. Patient with active lower GI bleed could be secondary to hemorrhoids, also need to consider possible diverticular bleed or other etiology. Will proceed with colonoscopy tomorrow. . Need to consider possible surgical consult. Current Visit: Yes Status: Acute Code(s): K62.5 - HEMORRHAGE OF ANUS AND RECTUM SNOMED Code(s): 77543473 (2) History of hemorrhoids Current Visit: Yes Status: Acute Code(s): Z87.19 - PERSONAL HISTORY OF OTHER DISEASES OF THE DIGESTIVE SYSTEM SNOMED Code(s): 49679515215953783 (3) Iron deficiency anemia Current Visit: Yes Status: Acute Code(s): D50.9 - IRON DEFICIENCY ANEMIA, UNSPECIFIED SNOMED Code(s): 49360156 (4) Hypokalemia Narrative/Plan: Replace per protocol Current Visit: Yes Status: Acute Code(s): E87.6 - HYPOKALEMIA SNOMED Code(s): 29627314 Plan: 1. Continue symptomatic and supportive care 2. Every 6 CBC, transfuse for hemoglobin less than 7 3. Patient may have clear liquid diet. N.p.o. after midnight 4. Replace potassium per protocol 5. Bowel prep tomorrow morning 6. Colonoscopy tomorrow afternoon 7. Further recommendations forthcoming based on clinical course Thank you for this consultation, we will continue to follow. Dr. Keila Sanford I agree with the dictator's note, documented as a scribe by Sunshine Marx.
[2024-10-30 12:52] LABS: Anisocytosis Slight; HCT 26.5 % (39.0-53.0); HGB 8.1 gm/dL (13.0-17.5); Hypochromasia Marked; MCH 22.9 pg (25.0-35.0); MCHC 30.7 g/dL (31.0-37.0); MCV 74.8 fL (80.0-100.0); Mean Platelet Volume 7.6; Microcytosis Moderate; Platelet Count 529 k/uL (150-450); Poikilocytosis Slight; RBC 3.55 m/uL (4.30-5.90); RDW 18.7 % (11.5-15.5); WBC 5.6 k/uL (3.8-10.6)
[2024-10-30 16:33] LABS: Anisocytosis Slight; HCT 24.8 % (39.0-53.0); HGB 7.3 gm/dL (13.0-17.5); Hypochromasia Marked; MCH 22.2 pg (25.0-35.0); MCHC 29.5 g/dL (31.0-37.0); MCV 75.1 fL (80.0-100.0); Mean Platelet Volume 8.5; Microcytosis Moderate; Platelet Count 510 k/uL (150-450); Poikilocytosis Moderate; RBC 3.31 m/uL (4.30-5.90); RDW 18.6 % (11.5-15.5); WBC 5.2 k/uL (3.8-10.6)
[2024-10-30] MEDS ORDERED: NON FORMULARY DRUG (Fluticasone Propion/Salmeterol [Advair 250-50 Diskus] 1 EACH Each) INHALATION PRN (20:09)
[2024-10-30] MEDS ORDERED: NON FORMULARY DRUG (Levalbuterol Hfa Inhaler 200 PUFF/9 GM Gm) INHALATION PRN (20:09)
[2024-10-30] MEDS: SYMBICORT 160-4.5 MCG INHALER INHALATION SCH (20:24)
[2024-10-31] MEDS: PEG 3350 (236 GM/BTL) + LYTES 4,000 ML BOTTLE PO ONE (00:05)
[2024-10-31 00:41] LABS: Anisocytosis Slight; HCT 23.7 % (39.0-53.0); HGB 7.2 gm/dL (13.0-17.5); Hypochromasia Marked; MCHC 30.1 g/dL (31.0-37.0); MCV 76.1 fL (80.0-100.0); Mean Platelet Volume 6.9; Microcytosis Moderate; Platelet Count 542 k/uL (150-450); Poikilocytosis Slight; RBC 3.12 m/uL (4.30-5.90); WBC 6.8 k/uL (3.8-10.6)
[2024-10-31] MEDS ORDERED: PEG 3350 (236 GM/BTL) + LYTES 4,000 ML BOTTLE PO ONE (05:00)
[2024-10-31 07:27] LABS: Anisocytosis Slight; Basophils % (A) 0 %; Eosinophils # (A) 0.1 k/uL (0-0.7); Eosinophils % (A) 2 %; HCT 24.7 % (39.0-53.0); HGB 7.4 gm/dL (13.0-17.5); Hypochromasia Marked; Lymphocytes # (A) 2.1 k/uL (1.0-4.8); Lymphocytes % (A) 33 %; MCH 23.1 pg (25.0-35.0); MCHC 30.1 g/dL (31.0-37.0); MCV 76.6 fL (80.0-100.0); Mean Platelet Volume 7.8; Microcytosis Moderate; Monocytes # (A) 0.5 k/uL (0-1.0); Monocytes % (A) 7 %; Neutrophils # (A) 3.5 k/uL (1.3-7.7); Neutrophils % (A) 55 %; Platelet Count 601 k/uL (150-450); Poikilocytosis Slight; RBC 3.22 m/uL (4.30-5.90); RDW 19.1 % (11.5-15.5); WBC 6.4 k/uL (3.8-10.6)
[2024-10-31 07:52] LABS: African American GFR (CKD) >90 (>60 ml/min/1.73 sqM); Anion Gap 8 mmol/L; Blood Urea Nitrogen 10 mg/dL (9-20); Calcium 8.9 mg/dL (8.4-10.2); Carbon Dioxide 26 mmol/L (22-30); Chloride 104 mmol/L (98-107); Glucose 93 mg/dL (74-99); Magnesium 1.9 mg/dL (1.6-2.3); Non-African American GFR(CKD) >90 (>60 ml/min/1.73 sqM); Potassium 3.7 mmol/L (3.5-5.1); Sodium 138 mmol/L (137-145)
--- NOTE | 2024-10-31 12:02 | P.PN ---
Subjective This is a pleasant 39 years old male with past medical history of bleeding disorder, alcohol use disorder. Presents because of feeling dizzy. Patient has chronic dizziness but over the last 2 days has been feeling palpitation and rapid heart rate which concerned him to come to the emergency room Patient has been complaining with bloody bowel movements about 2-3 times per day for over the last 3 days. (Patient has pictures on his phone for his bloody bowel movement) Patient denies abdominal pain no vomiting. No chest pain or dyspnea. No urinary complaint. No headache weakness numbness or tingling He smokes about 1 pack/day and he was counseled to quit and he agrees to quit but he declines nicotine patch. Patient states he takes few drinks of liquor every night. Also he admits to using marijuana Patient and mother at bedside report having symptoms of severe acid reflux and him and her family with regurgitation of acid and dental caries as per his mother Patient denies using pain medication or blood thinners recently On admission blood pressure was on the low side 85/57, currently slightly improved with no significant tachycardia Hemoglobin 7.8, potassium low at 2.5 sodium low 128 Creatinine 1.2 Orthostatic or positive Occult blood in the stool was positive EKG showing sinus rhythm at 94/min with no significant ST-T wave 10/30 Patient is currently in the ICU at [facility] Patient denies abdominal pain, no other pain History reports bloody bowel movement but not checked by staff. Patient is counseled Hemoglobin is 8.7 today status post 1 unit of blood transfusion yesterday No overt signs symptoms of withdrawal He remains on IV protocol and normal saline 75 mL/h 10/31 Patient is with no abdominal pain vomiting He is getting bowel preparation for colonoscopy. He is looking to his bowel this morning, it is clear yellow, no more blood Hemoglobin 7.4, potassium 3.7 and one-time dose of replacement is given Creatinine improved down to 0.7. His blood pressure is stable 108/72 Continued with Protonix Review of systems CONSTITUTIONAL: No fever, no malaise, no fatigue. HEENT: No recent visual problems or hearing problems. Denied any sore throat. CARDIOVASCULAR: No orthopnea, PND, no palpitations, no syncope. PULMONARY: No shortness of breath, no cough, no hemoptysis. GASTROINTESTINAL: No diarrhea, no nausea, no vomiting, no abdominal pain. Normoactive bowel sounds. NEUROLOGICAL: No headaches, no weakness, no numbness. Active Medications Generic Name Dose Route Start Last Admin Trade Name Freq PRN Reason Stop Dose Admin Albuterol Sulfate 2.5 mg 10/30/24 01:35 Albuterol Nebulized 2.5 Mg/3 Ml INHALATION RT-QID PRN Shortness Of Breath Or Wheezing Budesonide/Formoterol Fumarate 2 puff 10/30/24 20:00 10/31/24 08:25 Symbicort 160-4.5 Mcg Inhaler INHALATION 2 puff RT-BID DUTCH Administration Lorazepam 2 mg 10/29/24 20:32 Lorazepam 2 Mg/Ml Inj IV 10/31/24 20:32 Q10M PRN CIWA 16 or higher Lorazepam 1 mg 10/29/24 20:32 Lorazepam 2 Mg/Ml Inj IV Q2HR PRN CIWA 8 or 9 Lorazepam 1 mg 10/29/24 20:32 Lorazepam 2 Mg/Ml Inj IV Q1HR PRN CIWA 10 to 15 Miscellaneous Information 1 each 10/29/24 20:22 Magnesium Replacement Protocol 1 Each Misc MISCELLANE DAILY PRN Per Protocol Protocol Naloxone HCl 0.2 mg 10/29/24 15:02 Naloxone 0.4 Mg/Ml 1 Ml Vial IV Q2M PRN Opioid Reversal Nicotine 1 patch 10/29/24 23:45 10/31/24 09:48 Nicotine 21mg/24hr Patch TRANSDERM 1 patch DAILY DUTCH Administration Pantoprazole Sodium 40 mg 10/29/24 21:00 10/31/24 09:48 Pantoprazole 40 Mg/10 Ml Vial IVP 40 mg BID DUTCH Administration Potassium Chloride 40 meq 10/31/24 11:59 Potassium Chloride Er 20 Meq Tab.Er PO 10/31/24 12:00 ONCE STA Thiamine HCl 100 mg 10/30/24 09:00 10/31/24 09:48 Thiamine 100 Mg Tab PO 100 mg DAILY DUTCH Administration Objective - Vital Signs Vital signs: Vital Signs Temp 98.3 F 10/31/24 11:53 Pulse 102 H 10/31/24 11:53 Resp 18 10/31/24 11:53 BP 108/72 10/31/24 11:53 Pulse Ox 100 10/31/24 11:53 FiO2 Intake & Output 10/30/24 10/31/24 10/31/24 18:59 06:59 18:59 Weight 70.8 kg Other: Voiding Method Toilet Toilet Urinal Urinal # Voids 5 2 2 # Bowel Movements 5 - Exam GENERAL: The patient is alert and oriented x3, not in any acute distress. Well developed, well nourished. HEENT: Pupils are round and equally reacting to light. EOMI. No scleral icterus. No conjunctival pallor. Normocephalic, atraumatic. No pharyngeal erythema. No thyromegaly. CARDIOVASCULAR: S1 and S2 present. No murmurs, rubs, or gallops. PULMONARY: Chest is clear to auscultation, no wheezing , no crackles. ABDOMEN: Soft, nontender, nondistended, normoactive bowel sounds. No palpable organomegaly. MUSCULOSKELETAL: No joint swelling or deformity. EXTREMITIES: No cyanosis, clubbing, or pedal edema. NEUROLOGICAL: Gross neurological examination did not reveal any focal deficits. SKIN: No rashes. no petechiae. - Labs CBC & Chem 7: 10/31/24 06:45 10/31/24 06:45 Labs: Abnormal Lab Results - Last 24 Hours (Table) 10/30/24 10/30/24 10/31/24 Range/Units 12:31 16:14 00:32 RBC 3.55 L 3.31 L 3.12 L (4.30-5.90) m/uL Hgb 8.1 L 7.3 L 7.2 L (13.0-17.5) gm/dL Hct 26.5 L 24.8 L 23.7 L (39.0-53.0) % MCV 74.8 L 75.1 L 76.1 L (80.0-100.0) fL MCH 22.9 L 22.2 L 23.0 L (25.0-35.0) pg MCHC 30.7 L 29.5 L 30.1 L (31.0-37.0) g/dL RDW 18.7 H 18.6 H 19.0 H (11.5-15.5) % Plt Count 529 H 510 H 542 H (150-450) k/uL 10/31/24 Range/Units 06:45 RBC 3.22 L (4.30-5.90) m/uL Hgb 7.4 L (13.0-17.5) gm/dL Hct 24.7 L (39.0-53.0) % MCV 76.6 L (80.0-100.0) fL MCH 23.1 L (25.0-35.0) pg MCHC 30.1 L (31.0-37.0) g/dL RDW 19.1 H (11.5-15.5) % Plt Count 601 H (150-450) k/uL Assessment and Plan Assessment: Acute GI bleed Hypotension secondary to above. Improved Acute kidney injury, present on admission improved Electrolyte abnormality with hypokalemia and hyponatremia. Improving Alcohol use disorder Nicotine dependence Substance abuse with marijuana History of hypertension, currently patient was hypotensive Patient states that he has history of hemorrhoids Plan: Monitor hemoglobin S/p transfusing 1 unit of blood on admission Patient transferred [facility] consult Plan for colonoscopy today Replace potassium and magnesium per protocol Continue with IV fluid Start IV Protonix twice daily Start CIWA protocol and thiamine Further recommendation based on the clinical course DVT prophylaxis: Mechanical, no anticoagulation because of bleeding GI prophylaxis Protonix Prognosis is guarded
--- NOTE | 2024-10-31 13:20 | P.PN ---
Subjective Progress Note Date: 10/31/24 Principal diagnosis: GI bleed. Patient is a 39-year-old male with past medical history significant for internal and external hemorrhoids, anemia with previous iron infusions, GERD, possible pyloric stenosis as an , COPD, current ongoing tobacco dependence, and chronic alcohol use. Patient states that over the last year or so he has had intermittent episodes of bright red rectal bleeding, usually subsides on its own. States that he has had recent colonoscopy within the last year. He does have known history of internal and external hemorrhoids. He is also known to be anemic and has received iron infusions in the past. Over the past week, he has had increased bright red blood per rectum. Approximately 2-3 bowel movements per day. He has been symptomatic reporting dizziness on standing, heart palpitations, and exertional shortness of breath. Yesterday, when he got out of the shower he was particularly symptomatic. Finally, came to the hospital for evaluation. Has had 2 bright red bowel movement so far. Denies any nausea or vomiting or hematemesis. Appetite has been poor over last couple days. Denies weight loss. Denies abdominal pain. Denies rectal pain. Denies NSAID use. Labs on arrival include a CBC: WBC count 6.5, hemoglobin 7.8, hematocrit 24.3, platelets 510. CMP: Sodium 128, potassium 2.5, chloride 87, serum bicarb 33, BUN 14, creatinine 1.02, glucose 115. Lactic 2. Magnesium 1.7. LFTs unremarkable. Troponin less than 0.012. Stool occult positive. Patient is currently being evaluated in the intensive care unit as a 3 south overflow. Current vitals: Temperature 98 F, blood pressure 100/70 mmHg, heart rate 86 bpm, respirations 16 and nonlabored, SpO2 100% on room air oxygen. Patient has received 1 unit PRBCs. GI is consulted. Potassium is being replaced per protocol. Progress note dated October 31, 2024. This is a 39-year-old male who was seen in the intensive care unit yesterday. The patient is seen today in room 358. The patient presented with bleeding, from hemorrhoids. The patient is n.p.o. and is scheduled to have a colonoscopy today. His hemoglobin is 7.4. He did receive 1 unit of packed red blood cells. Additional laboratory data includes a white count 6.4, hemoglobin 7.4, hematocrit 24.7, platelet count 601,000. Sodium 138, potassium 3.7, chlorides 104, CO2 26, BUN 10, creatinine 0.75. Anion gap is 8. Magnesium is 1.9. Calcium 8.9. Objective - Vital Signs Vital signs: Vital Signs Temp 98.3 F 10/31/24 11:53 Pulse 102 H 10/31/24 11:53 Resp 18 10/31/24 11:53 BP 108/72 10/31/24 11:53 Pulse Ox 100 10/31/24 11:53 FiO2 Intake & Output 10/30/24 10/31/24 10/31/24 18:59 06:59 18:59 Weight 70.8 kg Other: Voiding Method Toilet Toilet Urinal Urinal # Voids 5 2 2 # Bowel Movements 5 - Exam No acute distress, oriented 3. HEENT examination is grossly unremarkable. Mucous membranes are moist. No oral lesions. Neck supple. Full range of motion. No adenopathy thyromegaly or neck vein distention. Cardiovascular examination reveals regular rhythm rate. S1-S2 normal. No S3 or S4. No discernible murmur noted. Lungs reveal clear breath sounds. Breath sounds are equal bilaterally. No adventitious lung sounds including wheezes rhonchi or crackles. Abdomen soft bowel sounds are heard. No masses or tenderness. Extremities are intact. No cyanosis clubbing or edema. Skin is without rash or lesion. Neurologic examination is brief but nonfocal. - Labs CBC & Chem 7: 10/31/24 06:45 10/31/24 06:45 Labs: Abnormal Lab Results - Last 24 Hours (Table) 10/30/24 10/31/24 10/31/24 Range/Units 16:14 00:32 06:45 RBC 3.31 L 3.12 L 3.22 L (4.30-5.90) m/uL Hgb 7.3 L 7.2 L 7.4 L (13.0-17.5) gm/dL Hct 24.8 L 23.7 L 24.7 L (39.0-53.0) % MCV 75.1 L 76.1 L 76.6 L (80.0-100.0) fL MCH 22.2 L 23.0 L 23.1 L (25.0-35.0) pg MCHC 29.5 L 30.1 L 30.1 L (31.0-37.0) g/dL RDW 18.6 H 19.0 H 19.1 H (11.5-15.5) % Plt Count 510 H 542 H 601 H (150-450) k/uL Assessment and Plan Assessment: GI bleed, with known history of internal and external hemorrhoids. Acute blood loss anemia, symptomatic. Severe hypokalemia, replaced. History of hypertension. GERD. Current ongoing tobacco dependence, reportedly smokes 1 pack/day. Mild chronic obstructive pulmonary disease. Alcohol abuse. Plan: Plan dated October 31, 2024. The patient is seen today in room 358. The patient is NPO. The patient will have a colonoscopy today. The patient's hemoglobin this morning was 7.4. Labs, x-rays, medications are reviewed. The patient has received a total of 1 unit of packed red blood cells. No additional recommendations are made. Prognosis is guarded. Time with Patient: Less than 30
[2024-10-31] MEDS: POTASSIUM CHLORIDE ER 20 MEQ TAB.ER PO STA (15:29)
[2024-10-31] MEDS ORDERED: PROPOFOL 10 MG/ML 20 ML VIAL IV ONE (16:56)
[2024-10-31] MEDS ORDERED: LIDOCAINE 1% INJ 10MG/ML (20 ML MDV) ONE (16:56)
[2024-10-31] MEDS: IV FLUID CONTINUATION 900 ML IV ONE (16:56)
--- NOTE | 2024-10-31 17:14 | P.PCN ---
Date of Procedure: 10/31/24 Procedure(s) Performed: BRIEF HISTORY: Patient is a 39-year-old pleasant white male admitted to hospital with rectal bleeding for the last 3 days duration. He has been having intermittent rectal bleeding for the last 1 year and usually lasts 3 to 4 days and resolves. He has these episodes at least once a month. He did have a colonoscopy in July 2023 that revealed right-sided diverticulosis and small internal hemorrhoids. During this hospitalization he presented with anemia with a hemoglobin of 8 g/dL requiring a unit of PRBC transfusion. Because of persistent bleeding he scheduled for a colonoscopy today. Procedure performed: Colonoscopy PREOPERATIVE DIAGNOSIS: Intermittent rectal bleeding for the last 2 years duration/severe anemia. IV sedation per Anesthesia. PROCEDURE: After informed consent was obtained, the patient, was brought into the endoscopy unit. IV sedation was administered by Anesthesia under continuous monitoring. Digital rectal examination was normal. Initially the Olympus CF-160 flexible video colonoscope was then inserted in the rectum, gradually advanced into the cecum without any difficulty. Careful examination was performed as the scope was gradually being withdrawn. Ileocecal valve and the appendiceal orifice were visualized and appeared normal. Prep was excellent. Mucosa of the cecum, ascending colon, transverse colon, descending colon, sigmoid colon, and rectum appeared normal. Scattered diffuse diverticulosis noted more prominent in the right colon. Retroflexion was performed in the rectum and grade 2 internal hemorrhoids seen were seen. The patient tolerated the procedure well. IMPRESSION: Grade 2 internal hemorrhoids Diffuse scattered diverticulosis more prominent than right colon No active bleeding RECOMMENDATIONS: Findings of this examination were discussed with the patient as well as his family. Most likely the bleeding is related to internal hemorrhoids and hence will consult surgery for further evaluation. Advance to regular diet.
[2024-10-31] MEDS: ALPRAZolam 0.25 MG TAB PO STA (18:37)
[2024-11-01 08:31] LABS: Anisocytosis Slight; HCT 21.8 % (39.0-53.0); Hypochromasia Marked; MCH 22.9 pg (25.0-35.0); MCV 76.2 fL (80.0-100.0); Mean Platelet Volume 7.6; Microcytosis Moderate; Platelet Count 533 k/uL (150-450); Poikilocytosis Slight; RBC 2.86 m/uL (4.30-5.90); WBC 7.1 k/uL (3.8-10.6)
[2024-11-01 08:38] LABS: HGB 6.6 gm/dL (13.0-17.5)
[2024-11-01] MEDS: HYDROCORTISONE SUPPOSITORY 25 MG SUPP RECTAL SCH (09:47)
--- NOTE | 2024-11-01 10:33 | P.PN ---
Subjective This is a pleasant 39 years old male with past medical history of bleeding disorder, alcohol use disorder. Presents because of feeling dizzy. Patient has chronic dizziness but over the last 2 days has been feeling palpitation and rapid heart rate which concerned him to come to the emergency room Patient has been complaining with bloody bowel movements about 2-3 times per day for over the last 3 days. (Patient has pictures on his phone for his bloody bowel movement) Patient denies abdominal pain no vomiting. No chest pain or dyspnea. No urinary complaint. No headache weakness numbness or tingling He smokes about 1 pack/day and he was counseled to quit and he agrees to quit but he declines nicotine patch. Patient states he takes few drinks of liquor every night. Also he admits to using marijuana Patient and mother at bedside report having symptoms of severe acid reflux and him and her family with regurgitation of acid and dental caries as per his mother Patient denies using pain medication or blood thinners recently On admission blood pressure was on the low side 85/57, currently slightly improved with no significant tachycardia Hemoglobin 7.8, potassium low at 2.5 sodium low 128 Creatinine 1.2 Orthostatic or positive Occult blood in the stool was positive EKG showing sinus rhythm at 94/min with no significant ST-T wave 10/30 Patient is currently in the ICU at [facility] Patient denies abdominal pain, no other pain History reports bloody bowel movement but not checked by staff. Patient is counseled Hemoglobin is 8.7 today status post 1 unit of blood transfusion yesterday No overt signs symptoms of withdrawal He remains on IV protocol and normal saline 75 mL/h 10/31 Patient is with no abdominal pain vomiting He is getting bowel preparation for colonoscopy. He is looking to his bowel this morning, it is clear yellow, no more blood Hemoglobin 7.4, potassium 3.7 and one-time dose of replacement is given Creatinine improved down to 0.7. His blood pressure is stable 108/72 Continued with Protonix 11/01 Patient s/p colonoscopy concerning for internal hemorrhoids, no active bleeding but general surgery were consulted. Patient himself feels fine and is asking to be discharged. I discussed with the patient his findings and his labs. His hemoglobin dropped to 6.6. Patient agrees following the blood transfusion. Continued on IV Protonix Objective - Vital Signs Vital signs: Vital Signs Temp 98.4 F 11/01/24 08:26 Pulse 93 12/13/24 08:26 Resp 16 11/01/24 08:26 BP 102/68 11/01/24 08:26 Pulse Ox 96 11/01/24 08:26 FiO2 Intake & Output 10/31/24 11/01/24 11/01/24 18:59 06:59 18:59 Intake Total 280 368 Balance 280 368 Weight 70.5 kg Intake: IV 100 10 Invasive Line 3 10 Oral 180 358 Other: Voiding Method Toilet Toilet Urinal Urinal # Voids 2 2 # Bowel Movements 1 - Exam GENERAL: The patient is alert and oriented x3, not in any acute distress. Well developed, well nourished. HEENT: Pupils are round and equally reacting to light. EOMI. No scleral icterus. No conjunctival pallor. Normocephalic, atraumatic. No pharyngeal erythema. No thyromegaly. CARDIOVASCULAR: S1 and S2 present. No murmurs, rubs, or gallops. PULMONARY: Chest is clear to auscultation, no wheezing , no crackles. ABDOMEN: Soft, nontender, nondistended, normoactive bowel sounds. No palpable organomegaly. MUSCULOSKELETAL: No joint swelling or deformity. EXTREMITIES: No cyanosis, clubbing, or pedal edema. NEUROLOGICAL: Gross neurological examination did not reveal any focal deficits. SKIN: No rashes. no petechiae. - Labs CBC & Chem 7: 11/01/24 08:07 10/31/24 06:45 Labs: Abnormal Lab Results - Last 24 Hours (Table) 11/01/24 Range/Units 08:07 RBC 2.86 L (4.30-5.90) m/uL Hgb 6.6 L* (13.0-17.5) gm/dL Hct 21.8 L (39.0-53.0) % MCV 76.2 L (80.0-100.0) fL MCH 22.9 L (25.0-35.0) pg MCHC 30.0 L (31.0-37.0) g/dL RDW 19.0 H (11.5-15.5) % Plt Count 533 H (150-450) k/uL Assessment and Plan Assessment: Acute GI bleed Hypotension secondary to above. Improved Acute kidney injury, present on admission improved Electrolyte abnormality with hypokalemia and hyponatremia. Improving Alcohol use disorder Nicotine dependence Substance abuse with marijuana History of hypertension, currently patient was hypotensive Patient states that he has history of hemorrhoids Plan: Monitor hemoglobin S/p transfusing another 1 unit of blood on admission on 11/01 General Surgery consult for hemorrhoids and anemia GI team consult S/p colonoscopy, results reviewed Replace potassium and magnesium per protocol Continue with IV fluid Continue with IV Protonix twice daily Start CIWA protocol and thiamine. Patient currently with no active withdrawal symptoms Further recommendation based on the clinical course DVT prophylaxis: Mechanical, no anticoagulation because of bleeding GI prophylaxis Protonix Prognosis is guarded
[2024-11-01] MEDS: ACETAMINOPHEN TAB 325 MG TAB PO PRN (11:51)
--- NOTE | 2024-11-01 11:53 | P.PN ---
Subjective Progress Note Date: 11/01/24 Principal diagnosis: Rectal bleeding This a pleasant 39-year-old male with a past medical history of rectal bleeding with diagnosed internal and external hemorrhoids. Patient also has history of iron deficiency anemia and requires iron infusions about every 2 months. Patient states over the last week he has been having quite a significant amount of bright red blood per rectum with bowel movements. He states usually monthly he will get episodes and that will last about 1 week, and this has been going on for last 1 to 2 years. He states his last colonoscopy was within the last year done by Dr. Ramírez at [facility]. He is unsure of the findings. States he has followed with Dr. Gonzalez as well for possible hemorrhoidectomy however he did not move forward with the surgery. On admission patient had hemoglobin of 7.8 was transfused 1 unit of blood. Repeat hemoglobin today is 8.7. He denies any associated abdominal pain. States that he has a little mild discomfort with bowel movement and his last bowel movement was this morning which was all bright red blood in the toilet. 11/01/2024 Patient seen and examined today as a follow-up. Yesterday he underwent colonoscopy with findings of grade 2 internal hemorrhoids without any active bleeding and diverticulosis. Patient states he did have some rectal bleeding with the bowel movement early this morning then he had another 1 which had no bleeding. This morning's hemoglobin had a drop to 6.6. He denies any abdominal pain, nausea or vomiting. Objective - Vital Signs Vital signs: Vital Signs Temp 98.7 F 10/31/24 23:41 Pulse 101 H 11/01/24 03:43 Resp 15 11/01/24 03:43 BP 92/54 11/01/24 03:43 Pulse Ox 100 11/01/24 03:43 FiO2 Intake & Output 10/31/24 11/01/24 11/01/24 18:59 06:59 18:59 Intake Total 280 Balance 280 Weight 70.5 kg Intake: IV 100 Oral 180 Other: Voiding Method Toilet Urinal # Voids 2 2 # Bowel Movements 1 - Exam General appearance: The patient is alert, oriented, appears in no acute distress. HET: Head is normocephalic and atraumatic. Conjunctiva pink. Sclera anicteric. Neck: Supple without lymphadenopathy. Abdomen: Soft, nontender, nondistended. Extremities: Normal skin color and turgor. No pedal edema Skin: No rashes, no jaundice Neurological: No focal deficits. Alert and oriented. - Labs CBC & Chem 7: 11/01/24 08:07 10/31/24 06:45 Assessment and Plan (1) BRBPR (bright red blood per rectum) Narrative/Plan: 39-year-old male presenting with bright red blood per rectum with a history of internal and external hemorrhoids with previous GI bleeds. Last colonoscopy within the last year report not available at this time. History of iron deficiency anemia they believe likely secondary to hemorrhoidal bleeding. Has had previous consult with general surgery however had not pursued hemorrhoidectomy. Patient with active lower GI bleed could be secondary to hemorrhoids, also need to consider possible diverticular bleed or other etiology. Colonoscopy completed with findings of grade 2 internal hemorrhoids and diverticulosis without any active bleeding or old blood noted. General surgery consult [place] to Dr. Gonzalez who patient has previously been established with. Recommend hydrocortisone suppository. Current Visit: Yes Status: Acute Code(s): K62.5 - HEMORRHAGE OF ANUS AND RECTUM SNOMED Code(s): 91954524 (2) History of hemorrhoids Current Visit: Yes Status: Acute Code(s): Z87.19 - PERSONAL HISTORY OF OTHER DISEASES OF THE DIGESTIVE SYSTEM SNOMED Code(s): 23684008571611308 (3) Iron deficiency anemia Current Visit: Yes Status: Acute Code(s): D50.9 - IRON DEFICIENCY ANEMIA, UNSPECIFIED SNOMED Code(s): 96335863 (4) Hypokalemia Current Visit: Yes Status: Acute Code(s): E87.6 - HYPOKALEMIA SNOMED Code(s): 26221095 Plan: 1. Continue symptomatic and supportive care 2. Agree with transfuse 1 unit of blood for hemoglobin of 6.6 3. Patient may have regular diet 4. Patient is status post colonoscopy 5. Anusol rectal suppository ordered 6. Consult to general surgery. Appreciate their recommendations. Thank you for allowing us to participate in the care of the patient, the GI service will sign off, gastroenterology will not be available at the hospital this weekend. Dr. Keila Sanford I agree with the dictator's note, documented as a scribe by Sunshine Marx.
--- NOTE | 2024-11-01 13:41 | P.GSCN ---
History of Present Illness Consult date: 11/01/24 History of present illness: CHIEF COMPLAINT: GI bleed HISTORY OF PRESENT ILLNESS: This is a 39-year-old male who presented the hospital with complaints of dizziness and shortness of breath. He is also had history of recurrent anemia requiring blood transfusions. He reports passing bright red blood with his stools monthly for about a week at a time for the last 1 year. Patient reports he does have regular bowel movements 2-3 bowel movements a day. He does have a history of hemorrhoids. Patient had a colonoscopy completed with Dr. Wade that had reported grade 2 internal hemorrhoids and diverticulosis. No active bleeding reported on colonoscopy. Patient's hemoglobin today has dropped to 6.6 from 7.4 and he is getting a unit of blood today. He did receive a unit of blood on admission too. Surgical service has been consulted in regards to bleeding internal hemorrhoids. PAST MEDICAL HISTORY: See below PAST SURGICAL HISTORY: See below MEDICATIONS: See below ALLERGIES: See below SOCIAL HISTORY: No illicit drug use. REVIEW OF SYSTEMS: CONSTITUTIONAL: Denies fever or chills. HEENT: Denies blurred vision, vision changes, or eye pain. Denies hemoptysis CARDIOVASCULAR: Denies chest pain or pressure. RESPIRATORY: No shortness of breath. GASTROINTESTINAL: See HPI for pertinent findings HEMATOLOGIC: Denies bleeding disorders. GENITOURINARY: Denies any blood in urine or increased urinary frequency. SKIN: Denies pruitis. Denies rash. PHYSICAL EXAM: VITAL SIGNS: Reviewed GENERAL: Well-developed in no acute distress. HEENT: No sclera icterus. Extraocular movements grossly intact. Moist buccal mucosa. Head is atraumatic, normocephalic. No nasal drainage. ABDOMEN: Soft. Nondistended. Nontender NEUROLOGIC: Alert and oriented. Cranial nerves II through XII grossly intact. Rectal exam: External hemorrhoids noted. No active bleeding. LABORATORY DATA: WBC 7.1 Hgb hemoglobin on admission 7.8. hgb today 6.6. platelets 533 Sodium 13. potassium 3.7 creatinine 0.75 IMAGING: ASSESSMENT: 1. Acute blood loss anemia possibly related to bleeding hemorrhoids 2. Internal and external hemorrhoids PLAN: -Patient can be discharged from surgical standpoint when medically cleared -Recommend outpatient hemorrhoid surgery -Agree with blood transfusion Physician Tow Truck Dispatcher note has been reviewed by physician. Signing provider agrees with the documented findings, assessment, and plan of care. I have personally seen and examined the patient, reviewed the MANAGER [employer] /PAs history, exam and MDM and agree with the assessment and plan as written. Based on total visit time, I have performed more than 50% of the visit. As above: Patient with frequent rectal bleeding. Repeat colonoscopy yesterday results noted. On exam patient has external hemorrhoids right lateral and left lateral location. Right lateral seems to be somewhat larger. Options reviewed. Patient and I had previously discussed options of operative hemorrhoidectomy. He would like to proceed with that plan. No bleeding today or during colonoscopy yesterday. May discharge. Surgery scheduled for 11/11. Risks of bleeding, infection, stricture, incontinence, recurrence, postoperative pain all discussed. He understands and wishes to proceed. Past Medical History Past Medical History: Blood Disorder, GERD/Reflux, Hypertension Additional Past Medical History / Comment(s): hiatal hernia.ANEMIA History of Any Multi-Drug Resistant Organisms: None Reported Past Surgical History: Bowel Resection Additional Past Surgical History / Comment(s): surg. on stomach as a baby for frequent vomiting Past Anesthesia/Blood Transfusion Reactions: No Reported Reaction Past Psychological History: No Psychological Hx Reported Smoking Status: Current every day smoker Past Alcohol Use History: Daily Additional Past Alcohol Use History / Comment(s): 1 ppd daily use Past Drug Use History: Marijuana Additional Drug Use History / Comment(s): daily use - Past Family History Mother Family Medical History: Cancer Additional Family Medical History / Comment(s): pt's. grandfather has MTHFR gene Medications and Allergies Home Medications Medication Instructions Recorded Confirmed Type Lisinopril-Hctz 20-25 mg 1 tab PO DAILY 10/04/19 10/29/24 History [Zestoretic 20-25] amLODIPine [Norvasc] 5 mg PO DAILY 10/04/19 10/29/24 History Famotidine 40 mg PO BID 11/29/23 10/29/24 History Levalbuterol Hfa Inhaler [Xopenex 2 puff INHALATION RT-Q4H PRN 11/29/23 10/29/24 History Hfa Inhaler] Loratadine 10 mg PO DAILY 11/29/23 10/29/24 History Multivitamins, Thera [Multivitamin 1 tab PO DAILY 11/29/23 10/29/24 History (formulary)] Fluticasone Propion/Salmeterol 1 puff INHALATION RT-BID PRN 10/29/24 10/29/24 History [Advair 250-50 Diskus] Magnesium Oxide [Mag-Ox] 400 mg PO BID 10/29/24 10/29/24 History Omeprazole [PriLOSEC] 40 mg PO DAILY 10/29/24 10/29/24 History Allergies Allergy/AdvReac Type Severity Reaction Status Date / Time No Known Allergies Allergy Verified 10/29/24 15:16 Surgical - Exam Vital Signs Temp Pulse Resp BP Pulse Ox 98.4 F 121 H 22 85/57 94 L 10/29/24 10:20 10/29/24 10:20 10/29/24 10:20 10/29/24 10:20 10/29/24 10:20 Results - Labs 11/01/24 08:07 10/31/24 06:45 Abnormal Lab Results - Last 24 Hours (Table) 11/01/24 Range/Units 08:07 RBC 2.86 L (4.30-5.90) m/uL Hgb 6.6 L* (13.0-17.5) gm/dL Hct 21.8 L (39.0-53.0) % MCV 76.2 L (80.0-100.0) fL MCH 22.9 L (25.0-35.0) pg MCHC 30.0 L (31.0-37.0) g/dL RDW 19.0 H (11.5-15.5) % Plt Count 533 H (150-450) k/uL
--- NOTE | 2024-11-01 13:44 | P.PN ---
Subjective Progress Note Date: 11/01/24 Principal diagnosis: GI bleed. Patient is a 39-year-old male with past medical history significant for internal and external hemorrhoids, anemia with previous iron infusions, GERD, possible pyloric stenosis as an , COPD, current ongoing tobacco dependence, and chronic alcohol use. Patient states that over the last year or so he has had intermittent episodes of bright red rectal bleeding, usually subsides on its own. States that he has had recent colonoscopy within the last year. He does have known history of internal and external hemorrhoids. He is also known to be anemic and has received iron infusions in the past. Over the past week, he has had increased bright red blood per rectum. Approximately 2-3 bowel movements per day. He has been symptomatic reporting dizziness on standing, heart palpitations, and exertional shortness of breath. Yesterday, when he got out of the shower he was particularly symptomatic. Finally, came to the hospital for evaluation. Has had 2 bright red bowel movement so far. Denies any nausea or vomiting or hematemesis. Appetite has been poor over last couple days. Denies weight loss. Denies abdominal pain. Denies rectal pain. Denies NSAID use. Labs on arrival include a CBC: WBC count 6.5, hemoglobin 7.8, hematocrit 24.3, platelets 510. CMP: Sodium 128, potassium 2.5, chloride 87, serum bicarb 33, BUN 14, creatinine 1.02, glucose 115. Lactic 2. Magnesium 1.7. LFTs unremarkable. Troponin less than 0.012. Stool occult positive. Patient is currently being evaluated in the intensive care unit as a 3 south overflow. Current vitals: Temperature 98 F, blood pressure 100/70 mmHg, heart rate 86 bpm, respirations 16 and nonlabored, SpO2 100% on room air oxygen. Patient has received 1 unit PRBCs. GI is consulted. Potassium is being replaced per protocol. Progress note dated October 31, 2024. This is a 39-year-old male who was seen in the intensive care unit yesterday. The patient is seen today in room 358. The patient presented with bleeding, from hemorrhoids. The patient is n.p.o. and is scheduled to have a colonoscopy today. His hemoglobin is 7.4. He did receive 1 unit of packed red blood cells. Additional laboratory data includes a white count 6.4, hemoglobin 7.4, hematocrit 24.7, platelet count 601,000. Sodium 138, potassium 3.7, chlorides 104, CO2 26, BUN 10, creatinine 0.75. Anion gap is 8. Magnesium is 1.9. Calcium 8.9. Progress note dated November 01, 2024. 39-year-old male who was seen in the intensive care unit, for hemorrhoidal bleeding. The patient is currently seen today in room 358. The patient is on room air. No IV fluids. His hemoglobin is 8.4. Since being here in the hospital, the patient has received 1 unit of packed red blood cells. He has no ongoing critical care issues. Objective - Vital Signs Vital signs: Vital Signs Temp 98.1 F 11/01/24 12:06 Pulse 99 11/01/24 12:06 Resp 16 11/01/24 12:06 BP 102/70 11/01/24 12:06 Pulse Ox 99 11/01/24 12:06 FiO2 Intake & Output 10/31/24 11/01/24 11/01/24 18:59 06:59 18:59 Intake Total 280 1448 Balance 280 1448 Weight 70.5 kg Intake: IV 100 10 Invasive Line 3 10 Oral 180 1438 Blood Product 0 Rc As-1 Unit 0 [id number] Other: Voiding Method Toilet Toilet Urinal Urinal # Voids 2 2 2 # Bowel Movements 1 - Exam No acute distress, oriented 3. HEENT examination is grossly unremarkable. Mucous membranes are moist. No oral lesions. Neck supple. Full range of motion. No adenopathy thyromegaly or neck vein distention. Cardiovascular examination reveals regular rhythm rate. S1-S2 normal. No S3 or S4. No discernible murmur noted. Lungs reveal clear breath sounds. Breath sounds are equal bilaterally. No adventitious lung sounds including wheezes rhonchi or crackles. Abdomen soft bowel sounds are heard. No masses or tenderness. Extremities are intact. No cyanosis clubbing or edema. Skin is without rash or lesion. Neurologic examination is brief but nonfocal. - Labs CBC & Chem 7: 11/01/24 08:07 10/31/24 06:45 Labs: Abnormal Lab Results - Last 24 Hours (Table) 10/29/24 11/01/24 Range/Units 14:13 08:07 RBC 2.86 L (4.30-5.90) m/uL Hgb 6.6 L* (13.0-17.5) gm/dL Hct 21.8 L (39.0-53.0) % MCV 76.2 L (80.0-100.0) fL MCH 22.9 L (25.0-35.0) pg MCHC 30.0 L (31.0-37.0) g/dL RDW 19.0 H (11.5-15.5) % Plt Count 533 H (150-450) k/uL Crossmatch See Detail Assessment and Plan Assessment: GI bleed, with known history of internal and external hemorrhoids. Acute blood loss anemia, symptomatic. Severe hypokalemia, replaced. History of hypertension. GERD. Current ongoing tobacco dependence, reportedly smokes 1 pack/day. Mild chronic obstructive pulmonary disease. Alcohol abuse. Plan: Plan dated October 31, 2024. The patient is seen today in room 358. The patient is NPO. The patient will have a colonoscopy today. The patient's hemoglobin this morning was 7.4. Labs, x-rays, medications are reviewed. The patient has received a total of 1 unit of packed red blood cells. No additional recommendations are made. Prognosis is guarded. Plan dated November 01, 2024. The patient is seen today in room 358. The patient's CBC shows a white count of 7.1, hemoglobin 6.6, hematocrit 21.8, and platelet count 533,000. No additional labs from today are noted. The patient is being followed by GI and surgery. The patient does have a history of hemorrhoidal bleeding. The patient is stable from the pulmonary standpoint. He remains on room air. Additional recommendations or suggestions are forthcoming. Patient will be receiving a second unit of packed red blood cells. Moving forward, we will see the patient only as needed. The patient's colonoscopy revealed grade 2 internal hemorrhoids, diffuse scattered diverticulosis, most prominent in the right colon, but no active bleeding. Time with Patient: Less than 30
[2024-11-02] MEDS: LORazepam 2 MG/ML INJ IV PRN (00:10)
[2024-11-02 07:01] LABS: Anisocytosis Slight; Basophils % (A) 1 %; Eosinophils # (A) 0.2 k/uL (0-0.7); Eosinophils % (A) 4 %; HCT 24.2 % (39.0-53.0); HGB 7.4 gm/dL (13.0-17.5); Hypochromasia Marked; Lymphocytes # (A) 1.5 k/uL (1.0-4.8); Lymphocytes % (A) 35 %; MCHC 30.7 g/dL (31.0-37.0); MCV 78.2 fL (80.0-100.0); Mean Platelet Volume 7.4; Microcytosis Slight; Monocytes # (A) 0.3 k/uL (0-1.0); Monocytes % (A) 6 %; Neutrophils # (A) 2.2 k/uL (1.3-7.7); Neutrophils % (A) 51 %; Platelet Count 453 k/uL (150-450); Poikilocytosis Moderate; RDW 18.6 % (11.5-15.5); WBC 4.4 k/uL (3.8-10.6)
[2024-11-02 11:45] VITALS: BP 103/71; PULSE 89; RESP 18; TEMP 98.2
--- NOTE | 2024-11-02 12:40 | P.DS ---
Providers Date of admission: 10/29/24 15:24 Expected date of discharge: 11/02/24 Attending physician: Rehan Barnhart MD Consults: 10/29/24 15:02 Consult Physician Stat Consulting Provider: Sharon Sanford Consult Reason/Comments: Possible GI bleed Do you want consulting provider notified?: Yes 10/29/24 15:03 Consult Physician Stat Consulting Provider: Jaxon Mcdermott Consult Reason/Comments: Low hemoglobin possible GI bleed Do you want consulting provider notified?: Yes 10/31/24 17:14 Consult Physician Routine Consulting Provider: Kevin Gonzalez Consult Reason/Comments: Bleeding internall hemorrhoids Do you want consulting provider notified?: Yes Primary care physician: [facility] Course: 39 years old male with past medical history of bleeding disorder, alcohol use disorder. Presents because of feeling dizzy. Patient has chronic dizziness but over the last 2 days has been feeling palpitation and rapid heart rate which concerned him to come to the emergency room Patient has been complaining with bloody bowel movements about 2-3 times per day for over the last 3 days. (Patient has pictures on his phone for his bloody bowel movement) Patient denies abdominal pain no vomiting. No chest pain or dyspnea. No urinary complaint. No headache weakness numbness or tingling He smokes about 1 pack/day and he was counseled to quit and he agrees to quit but he declines nicotine patch. Patient states he takes few drinks of liquor every night. Also he admits to using marijuana Patient and mother at bedside report having symptoms of severe acid reflux and him and her family with regurgitation of acid and dental caries as per his mother Patient denies using pain medication or blood thinners recently On admission blood pressure was on the low side 85/57, currently slightly improved with no significant tachycardia Hemoglobin 7.8, potassium low at 2.5 sodium low 128 Creatinine 1.2 Orthostatic or positive Occult blood in the stool was positive EKG showing sinus rhythm at 94/min with no significant ST-T wave 10/30 Patient is currently in the ICU at [facility] Patient denies abdominal pain, no other pain History reports bloody bowel movement but not checked by staff. Patient is counseled Hemoglobin is 8.7 today status post 1 unit of blood transfusion yesterday No overt signs symptoms of withdrawal He remains on IV protocol and normal saline 75 mL/h 10/31 Patient is with no abdominal pain vomiting He is getting bowel preparation for colonoscopy. He is looking to his bowel this morning, it is clear yellow, no more blood Hemoglobin 7.4, potassium 3.7 and one-time dose of replacement is given Creatinine improved down to 0.7. His blood pressure is stable 108/72 Continued with Protonix 11/01 Patient s/p colonoscopy concerning for internal hemorrhoids, no active bleeding but general surgery were consulted. Patient himself feels fine and is asking to be discharged. I discussed with the patient his findings and his labs. His hemoglobin dropped to 6.6. Patient agrees following the blood transfusion. Continued on IV Protonix 11/02: patient seen and evaluated bedside, patient seen by general surgery recommend outpatient follow-up plan to discharge home. GENERAL: The patient is alert and oriented x3, not in any acute distress. Well developed, well nourished. HEENT: Pupils are round and equally reacting to light. CARDIOVASCULAR: S1 and S2 present. No murmurs, rubs, or gallops. PULMONARY: Chest is clear to auscultation, no wheezing , no crackles. ABDOMEN: Soft, nontender, nondistended, normoactive bowel sounds. No palpable organomegaly. MUSCULOSKELETAL: No joint swelling or deformity. EXTREMITIES: No cyanosis, clubbing, or pedal edema. NEUROLOGICAL: Gross neurological examination did not reveal any focal deficits. Assessment Acute GI bleed secondary to hemorrhoids Hypotension secondary anemia resolved Acute kidney injury, present on admission improved Electrolyte abnormality with hypokalemia and hyponatremia. Improving Alcohol use disorder Nicotine dependence Substance abuse with marijuana History of hypertension, currently patient was hypotensive Patient states that he has history of hemorrhoids Plan: follow-up hemoglobin greater than 7, received total 2 units to hospitalization. Hemoglobin remained stable General Surgery consult for hemorrhoids and anemia Pper GS Patient can be discharged from surgical standpoint when medically cleared Recommend outpatient hemorrhoid surgery previously discussed options of operative hemorrhoidectomy. He would like to proceed with that plan. No bleeding today or during colonoscopy yesterday. May discharge. Surgery scheduled for 11/11. Risks of bleeding, infection, stricture, incontinence, recurrence, postoperative pain all discussed. He understands and wishes to proceed. S/p colonoscopy, results reviewed DVT prophylaxis: Mechanical, no anticoagulation because of bleeding continue home regimen postdischarge Patient Condition at Discharge: Fair Plan - Discharge Summary New Discharge Prescriptions: Continue amLODIPine [Norvasc] 5 mg PO DAILY Lisinopril-Hctz 20-25 mg [Zestoretic 20-25] 1 tab PO DAILY Famotidine 40 mg PO BID Multivitamins, Thera [Multivitamin (formulary)] 1 tab PO DAILY Fluticasone Propion/Salmeterol [Advair 250-50 Diskus] 1 puff INHALATION RT- BID PRN PRN Reason: Shortness Of Breath Omeprazole [PriLOSEC] 40 mg PO DAILY Levalbuterol Hfa Inhaler [Xopenex Hfa Inhaler] 2 puff INHALATION RT-Q4H PRN PRN Reason: difficulty breathing Loratadine 10 mg PO DAILY Magnesium Oxide [Mag-Ox] 400 mg PO BID Discharge Medication List Lisinopril-Hctz 20-25 mg [Zestoretic 20-25] 1 tab PO DAILY 10/04/19 [History] amLODIPine [Norvasc] 5 mg PO DAILY 10/04/19 [History] Famotidine 40 mg PO BID 11/29/23 [History] Levalbuterol Hfa Inhaler [Xopenex Hfa Inhaler] 2 puff INHALATION RT-Q4H PRN 11/29/23 [History] Loratadine 10 mg PO DAILY 11/29/23 [History] Multivitamins, Thera [Multivitamin (formulary)] 1 tab PO DAILY 11/29/23 [History] Fluticasone Propion/Salmeterol [Advair 250-50 Diskus] 1 puff INHALATION RT-BID PRN 10/29/24 [History] Magnesium Oxide [Mag-Ox] 400 mg PO BID 10/29/24 [History] Omeprazole [PriLOSEC] 40 mg PO DAILY 10/29/24 [History] Follow up Appointment(s)/Referral(s): Michael Jack DO [Primary Care Provider] - 1-2 days Kevin Gonzalez MD [Medical Doctor] - 10 Days (Follow-up for surgery) Activity/Diet/Wound Care/Special Instructions: continue regular diet Discharge Disposition: HOME SELF-CARE
== END 2024-11-02 13:50 | disposition home or self-care (01) | DRG 254 ==
LOC: EC 10:16 → 2SICU 15:24 → 3SCARD 10-30 19:16
PROVIDERS: ADMIT Internal Medicine; ATTEND Internal Medicine
PROC: 30233N1 Transfusion of Nonautologous Red Blood Cells into Peripheral Vein, Percutaneous Approach (ICD-10-PCS; 2024-10-29)
PROC: 0DJD8ZZ Inspection of Lower Intestinal Tract, Via Natural or Artificial Opening Endoscopic (ICD-10-PCS; principal; 2024-10-31 08:35)
DX: K64.1 Second degree hemorrhoids (principal); K64.4 Residual hemorrhoidal skin tags; D62 Acute posthemorrhagic anemia; F10.10 Alcohol abuse, uncomplicated; F17.210 Nicotine dependence, cigarettes, uncomplicated; D50.9 Iron deficiency anemia, unspecified; E87.1 Hypo-osmolality and hyponatremia; E87.6 Hypokalemia; F12.10 Cannabis abuse, uncomplicated; K44.9 Diaphragmatic hernia without obstruction or gangrene; I10 Essential (primary) hypertension; I95.89 Other hypotension; J44.9 Chronic obstructive pulmonary disease, unspecified; K02.9 Dental caries, unspecified; K21.9 Gastro-esophageal reflux disease without esophagitis; K57.30 Diverticulosis of large intestine without perforation or abscess without bleeding; N17.9 Acute kidney failure, unspecified; Z71.6 Tobacco abuse counseling; Z79.899 Other long term (current) drug therapy; Z87.738 Personal history of other specified (corrected) congenital malformations of digestive system; Z90.49 Acquired absence of other specified parts of digestive tract
CPT/HCPCS: 36415; 36430; 45378; 80048; 80053; 80076; 82272; 83605; 83735; 84132; 84484; 85025; 85027; 85610; 85730; 86850; 86900; 86901; 86920; 93005; 94640; 94760; 96361; 96365; 96366; 99285

== ENCOUNTER 2024-11-11 08:25 | Day surgery (SDC) | payer OTHER ==
[2024-11-08 09:43] VITALS: BMI 22.8
--- NOTE | 2024-11-11 07:32 | P.HPADDEND ---
H&P Addendum H&P Addendum Date: 11/11/24 Please refer to the recent surgical consult from 1 to 2 weeks ago. Patient was hospitalized with persistent rectal bleeding. Underwent colonoscopy. On exam patient has hemorrhoids primarily on the right lateral location but also smaller on the left lateral location. Will proceed with operative hemorrhoidectomy today. Risks previously discussed in detail. Patient is agreeable and would like to proceed.
[~2024-11-11 08:25] MED LIST changes: +HYDROmorphone 0.5 MG/0.5 ML SYRINGE IVP PRN; -LACTATED RINGERS 1,000 ML IV SCH; +LIDOCAINE 1% (10MG/ML) FOR IV START INTRADERMA PRN; -LIDOCAINE 1% 20 ML VIAL (10MG/ML) FOR IV START INTRADERMA PRN; +Pre Op ABX Message 1 EACH MISC MISCELLANE ONE; +droPERidol 5 MG/2 ML VIAL IVP ONE
[2024-11-11] MEDS: IV FLUID CONTINUATION 1,000 ML IV ONE ×2 (08:55→11:18)
[2024-11-11] MEDS: DEXAMETHASONE SOD PHOSPHATE 4 MG/ML 1 ML VIAL IV ONE (09:17)
[2024-11-11] MEDS: ONDANSETRON 4 MG/2 ML VIAL IVP ONE (09:17)
[2024-11-11] MEDS: LACTATED RINGERS 1,000 ML IV SCH (09:18)
[2024-11-11] MEDS: HEPARIN SODIUM,PORCINE 5,000 UNIT/ML 1 ML VIAL SQ STA (10:02)
[2024-11-11] MEDS: ACETAMINOPHEN TAB 500 MG TAB PO STA (10:03)
[2024-11-11] MEDS ORDERED: MIDAZOLAM 2 MG/2 ML VIAL ONE (10:07)
[2024-11-11] MEDS ORDERED: ROCURONIUM 10 MG/ML (5 ML VIAL) IV ONE (10:07)
[2024-11-11] MEDS ORDERED: SUCCINYLCHOLINE CHLORIDE 200 MG/10 ML VIAL IV ONE (10:07)
[2024-11-11] MEDS ORDERED: HYDROmorphone (PF) 1 MG/ML ONE (10:07)
[2024-11-11] MEDS ORDERED: fentaNYL (PF) 50 MCG/ML 2 ML AMP ONE (10:07)
[2024-11-11] MEDS ORDERED: KETOROLAC 30 MG/ML 1 ML VIAL ONE (10:07)
[2024-11-11] MEDS ORDERED: PROPOFOL 10 MG/ML 20 ML VIAL IV ONE (10:07)
[2024-11-11] MEDS ORDERED: LIDOCAINE 1% INJ 10MG/ML (20 ML MDV) ONE (10:07)
[2024-11-11 10:21] LABS: Anisocytosis Moderate; Basophils # (A) 0.1 k/uL (0-0.2); Basophils % (A) 2 %; Eosinophils # (A) 0.2 k/uL (0-0.7); Eosinophils % (A) 3 %; HCT 28.1 % (39.0-53.0); HGB 8.5 gm/dL (13.0-17.5); Hypochromasia Marked; Lymphocytes # (A) 1.1 k/uL (1.0-4.8); Lymphocytes % (A) 23 %; MCH 22.6 pg (25.0-35.0); MCHC 30.3 g/dL (31.0-37.0); MCV 74.8 fL (80.0-100.0); Mean Platelet Volume 6.9; Microcytosis Moderate; Monocytes # (A) 0.3 k/uL (0-1.0); Monocytes % (A) 7 %; Neutrophils # (A) 3.2 k/uL (1.3-7.7); Neutrophils % (A) 63 %; Platelet Count 581 k/uL (150-450); Poikilocytosis Moderate; RBC 3.76 m/uL (4.30-5.90); RDW 20.4 % (11.5-15.5)
[2024-11-11] MEDS: LIDOCAINE 1%-EPI 1:100,000 20 ML VIAL SQ ONE (10:36)
[2024-11-11] MEDS: BUPIVACAINE (PF) 0.25% 30 ML VIAL SQ ONE (11:00)
[2024-11-11] MEDS ORDERED: HYDROcodone/APAP 5-325MG 1 EACH TAB PO PRN (11:12)
[2024-11-11] MEDS ORDERED: traMADol 50 MG TAB PO PRN (11:12)
[2024-11-11] MEDS ORDERED: ACETAMINOPHEN TAB 325 MG TAB PO PRN (11:12)
[2024-11-11] MEDS ORDERED: NALOXONE 0.4 MG/ML 1 ML VIAL IV PRN (11:12)
--- NOTE | 2024-11-11 11:19 | P.OP ---
Date of Procedure: 11/11/24 Procedure(s) Performed: PREOPERATIVE DIAGNOSIS: Symptomatic hemorrhoids POSTOPERATIVE DIAGNOSIS: Same PROCEDURE: Excisional hemorrhoidectomy right posterior lateral and left lateral location SURGEON: Lisa EBL: 20 cc ANESTHESIA: General COMPLICATIONS: None OPERATIVE PROCEDURE: Patient placed in the prone jackknife position after general anesthesia was achieved. The right hemorrhoid was first addressed. This was located in the posterior lateral location. The rectal retractor was utilized. No anorectal abnormalities were noted other than the hemorrhoids. At the apex of the external hemorrhoid a 3-0 chromic stitch was used to ligate the feeding vessel. This was tied down and the stitch was left in place. We then made an elliptical incision extending from the perianal skin elliptically around the external hemorrhoid taking care to avoid any injury to the anal sphincter. The hemorrhoid was excised using a combination of sharp dissection, electrocautery, and the harmonic scalpel. This dissection took place just distal to the stitch that was previously placed. Using that same 3-0 chromic stitch I then sutured closed the defect in a locking fashion. This was carried out to the apex of our skin incision. This was then tied. The patient's left lateral hemorrhoid was slightly smaller in size but appeared to be the second most symptomatic hemorrhoid. This was addressed in a similar fashion. Again an apical 3-0 chromic stitch was placed. The elliptical incision took place extending from the anal rectal skin around the hemorrhoid. Care was again taken to avoid injury to the anal sphincter. Both specimens were passed off together as hemorrhoidectomy. The defect at this location was again closed using the previously placed running locking 3-0 chromic stitch. Both areas were inspected for bleeding. None was seen. The tissues around the surgical site was infiltrated with quarter percent Marcaine solution. Gelfoam was then placed against each incision. A rolled piece of 4 x 4 was placed in the gluteal crease. DISPOSITION: Stable to recovery room
[2024-11-11 11:24] VITALS: TEMP 97.8
[2024-11-11 11:57] VITALS: RESP 16
[2024-11-11 13:14] VITALS: BP 109/74; PULSE 99
== END 2024-11-11 13:32 | disposition home or self-care (01) ==
LOC: OR 08:25
PROVIDERS: ATTEND Surgery
DX: K64.4 Residual hemorrhoidal skin tags (principal); J44.9 Chronic obstructive pulmonary disease, unspecified; K21.9 Gastro-esophageal reflux disease without esophagitis; D64.9 Anemia, unspecified; I10 Essential (primary) hypertension; Z90.49 Acquired absence of other specified parts of digestive tract; Z79.899 Other long term (current) drug therapy
CPT/HCPCS: 85025; 46945; J2250; J0330; J1644; J1100; J2405; J2003; J3010; J1885; J1171; J2704; J0665

== ENCOUNTER 2025-02-26 13:29 | Outpatient (CLI) | payer OTHER ==
[~2025-02-26 13:29] MED LIST changes: -HYDROmorphone 0.5 MG/0.5 ML SYRINGE IVP PRN; -LIDOCAINE 1% (10MG/ML) FOR IV START INTRADERMA PRN; -Pre Op ABX Message 1 EACH MISC MISCELLANE ONE; +SODIUM CHLORIDE 0.9% 250 ML in EMPTY BAG 1 BAG IV PRN; +SODIUM CHLORIDE 0.9% 500 ML 500 ML in EMPTY BAG 1 BAG IV PRN; +SODIUM FERRIC GLUCONAT-SUCROSE 62.5 MG in SODIUM CHLORIDE 0.9% 100 ML IVPB NR; -droPERidol 5 MG/2 ML VIAL IVP ONE
[2025-02-26 13:46] VITALS: BP 105/76; PULSE 100; RESP 16; TEMP 98.1
[2025-02-26] MEDS: SODIUM CHLORIDE 0.9% 500 ML 500 ML in EMPTY BAG 1 BAG IV PRN (13:48)
[2025-02-26] MEDS: SODIUM FERRIC GLUCONAT-SUCROSE 62.5 MG in SODIUM CHLORIDE 0.9% 100 ML IVPB ONE (14:15)
== END 2025-02-27 10:33 | disposition home or self-care (01) ==
LOC: PROCWHC3 13:29
DX: D50.9 Iron deficiency anemia, unspecified (principal)
CPT/HCPCS: 96365; J2916

== ENCOUNTER → 2025-03-13 | Outpatient (CLI) | payer OTHER ==
[~2025-03-13] MED LIST changes: -SODIUM CHLORIDE 0.9% 500 ML 500 ML in EMPTY BAG 1 BAG IV PRN; -SODIUM FERRIC GLUCONAT-SUCROSE 62.5 MG in SODIUM CHLORIDE 0.9% 100 ML IVPB NR
[2025-03-13 13:24] VITALS: BP 105/77; PULSE 92; RESP 16; TEMP 98.3
[2025-03-13] MEDS: SODIUM CHLORIDE 0.9% 500 ML 500 ML in EMPTY BAG 1 BAG IV PRN (13:24)
[2025-03-13] MEDS: SODIUM FERRIC GLUCONAT-SUCROSE 125 MG in SODIUM CHLORIDE 0.9% 100 ML IVPB NR (13:24)
== END ==
LOC: PROCWHC3 12:52
PROVIDERS: ATTEND Nurse Practitioner Family
DX: D50.9 Iron deficiency anemia, unspecified (principal)
CPT/HCPCS: 96365; J2916

== ENCOUNTER → 2025-06-19 | Outpatient (CLI) | payer OTHER ==
[~2025-06-19] MED LIST changes: +SODIUM FERRIC GLUCONAT-SUCROSE 125 MG in SODIUM CHLORIDE 0.9% 100 ML IVPB NR
[2025-06-19] MEDS: IRON SUCROSE 300 MG in SODIUM CHLORIDE 0.9% 250 ML IVPB NR (13:28)
[2025-06-19] MEDS: SODIUM CHLORIDE 0.9% 500 ML 500 ML in EMPTY BAG 1 BAG IV PRN (13:28)
[2025-06-19 13:31] VITALS: BP 91/60; PULSE 85; RESP 16; TEMP 97.5
== END ==
LOC: PROCWHC3 13:01
PROVIDERS: ATTEND Nurse Practitioner Family
DX: D50.9 Iron deficiency anemia, unspecified (principal)
CPT/HCPCS: 96365; 96366; J1756